=== PATIENT | male | born 1950 | race Two or more races ===

== ENCOUNTER 2021-03-20 21:07 | Inpatient (IN) | payer MEDICARE, MEDICAID, OTHER, SELFPAY ==
--- NOTE | 2021-03-20 | ECG_ITS ---
Test Reason : AMS Blood Pressure : / mmHG Vent. Rate : 100 BPM Atrial Rate : 100 BPM P-R Int : 116 ms QRS Dur : 084 ms QT Int : 332 ms P-R-T Axes : 054 052 038 degrees QTc Int : 428 ms Normal sinus rhythm Normal ECG No previous ECGs available Referred By: Generic ED Physician Electronically Signed By:UMBERTO LOZANO
--- NOTE | ~2021-03-20 | MR_ITS ---
EXAMINATION: MRI BRAIN WITHOUT CONTRAST. CLINICAL INFORMATION: Stroke. COMPARISON: CT brain 03/20/2021. TECHNIQUE: Routine MRI sequences of the brain were obtained except for the FLAIR sequence not obtained due to 7 patient motion and movement. At this point the exam was terminated FINDINGS: There is a restricted diffusion corresponding bright signal in the right posterior occipital lobe which correspond to the CT abnormality suggestive of acute infarct. There is no abnormal flow void signal seen in the mesial temporal lobe to suspect any associated hemorrhage. No additional areas of acute ischemia. No bleed. No edema or midline shift. The lateral ventricles are symmetrical in size and configuration but enlarged. There is mild prominence of cortical sulci consistent with mild cerebral volume loss. Normal flow void signal abnormality seen in major intracranial cerebral vasculature. The para nasal sinuses appear clear. There is T2 signal abnormality in the right mastoid sinus from inflammatory changes. MR/MR head/brain wo con IMPRESSION: Acute infarct changes right mesial and posterior occipital lobe. No evidence of hemorrhage. Age-related cerebral volume loss.
--- NOTE | ~2021-03-20 | CT_ITS ---
EXAMINATION: CT HEAD WITHOUT CONTRAST CLINICAL INFORMATION: Mental status changes COMPARISON: None TECHNIQUE: Contiguous axial imaging was performed from the skull base to vertex without intravenous administration of contrast. This CT examination was performed using dose optimization techniques as appropriate, variously including the following: *Automated exposure control *Adjustment of mA and/or kV according to patient size (this includes techniques or standardized protocols for targeted exams where dose is matched to indication/reason for exam; i.e. extremities or head) *Use of iterative reconstruction technique DLP: 1432 mGy-cm FINDINGS: Limited evaluation in some regions due to motion artifact. There is no evidence of acute intracranial hemorrhage. No abnormal mass effect or midline shift is seen. [place] to white matter differentiation is well preserved. No extra-axial fluid collections are identified. The ventricles are normal in size. Region of infarct in the right occipital lobe is favored to be subacute to chronic in nature. There is moderate periventricular white matter hypoattenuation consistent with chronic small vessel ischemic disease. Moderate volume loss is noted. The osseous structures and soft tissues are normal. The mastoid air cells and visualized portions of the paranasal sinuses are well aerated. CT/CT head/brain wo con IMPRESSION: Limited evaluation in some regions due to motion artifact. Right occipital lobe infarct is favored to be a subacute to chronic, though this would be better assessed with MRI. Chronic small vessel ischemic disease and volume loss.
--- NOTE | ~2021-03-20 | XR_ITS ---
EXAMINATION: XR CHEST CLINICAL INFORMATION: Altered mental status. COMPARISON: None. TECHNIQUE: AP view of the chest was obtained. FINDINGS: Normal appearance of the cardiomediastinal silhouette. An atrial loop recorder is visualized. The lungs are clear. No pleural effusions or pneumothorax. No acute osseous findings. XR/XR chest 1V IMPRESSION: No acute cardiopulmonary abnormalities.
[2021-03-20 21:17] VITALS: BP 121/69; BP 122/70; PULSE 102; PULSE 106; RESP 16; O2SAT 94; O2SAT 98; BMI 17.6
[2021-03-20 21:20] LABS: Glucose, Whole Blood 291 mg/dL (60-115)
--- NOTE | 2021-03-20 23:19 | ECG_ITS ---
Test Reason : AMS Blood Pressure : / mmHG Vent. Rate : 096 BPM Atrial Rate : 096 BPM P-R Int : 114 ms QRS Dur : 082 ms QT Int : 346 ms P-R-T Axes : 070 063 050 degrees QTc Int : 437 ms Normal sinus rhythm Normal ECG When compared with ECG of 20-MAR-2021 21:38, No significant change was found Referred By: Jonathan Nation Electronically Signed By:UMBERTO LOZANO
--- NOTE | 2021-03-20 23:22 | ED_ITS ---
HPI - General Adult General Chief complaint: Fall Stated complaint: rolled out of bed Time Seen by Provider: 03/20/21 23:17 Source: EMS and old records reviewed Mode of arrival: EMS Limitations: physical limitation (Due to Dementia, blind, deaf.) History of Present Illness HPI narrative: 70-year-old male came in from sniff for evaluation after was found on the floor, patient ruled out a bad and found on the floor unwitnessed, patient baseline is awake but disoriented, do not follow commands, dependent in most of the daily needs. Patient is nonverbal. Nursing staff were concerned because he was found on the floor reportedly he was acting differently. Related Data Allergies Allergy/AdvReac Type Severity Reaction Status Date / Time No Known Allergies Allergy Verified 03/20/21 23:19 Review of Systems Review of Systems: Yes Unobtainable due to mental condition [facility] Social History Social History Alcohol intake: never Patient Tobacco Use Status: Never used Tobacco Use of substances other than those prescribed or required for medical reasons: No Advance Directives: No Advance Directives Information Provided: No Physical Exam Vital Signs: Vital Signs: Last Vital Signs Temp 97.8 F 03/20/21 23:49 Pulse 102 H 03/20/21 21:17 Resp 16 03/20/21 21:17 BP 121/69 03/20/21 21:17 Pulse Ox 98 03/20/21 21:17 Body Mass Index 17.6 Vital signs have been reviewed as appeared to be correct. Blood pressure normal. Heart rate elevated. Respiration rate normal. Temperature normal. Oxygen saturation normal. Appearance: No acute distress. Head: Normal external exam. Normocephalic. Atraumatic. No Torres signs noted. No raccoon eyes noted Eyes: PERRLA. EOMI. Conjunctiva and sclera normal. Eyelids normal. ENT: TM's Normal. Pharynx normal. Uvula midline. Moist mucous membranes. No trismus noted. No drooling noted. No muffled voice noted. Neck: Normal inspection. Neck supple. FROM. No adenopathy. Thyroid Normal. No meningeal signs. No neck mass noted. CVS: Normal heart rate and rhythm. Heart sound normal. No murmurs noted. Pulses normal throughout. Respiratory: No respiratory distress. Painless inspiration. Breath sounds n ormal. No wheezes/rales/rhonchi noted. Chest nontender. No accessory muscle usage noted or decreased air movement noted. Abdomen: Soft and nontender. Bowel sounds normal in all 4 quadrants. No diste ntion noted. No organomegaly noted. No visible injury noted. Back: No CVA tenderness. Full range of motion noted. Skin: Skin warm and dry. Normal skin color. Normal skin turgor. No rashes/lesions/lacerations noted. Extremities: No lower extremity edema. Extremities exhibit normal range of m otion. Extremities nontender. Neuro: Appear to be at his normal baseline which is awake but disoriented, disregard examiner. NIH Stroke Scale Internal: Other (Unable to assess due to patient baseline condition of dementia.) Course Course Course Narrative: Assessment and plan. 70-year-old male baseline is bed ridden, dementia, blind, deaf, non historian. Found on the floor sent by senior care for further evaluation. CT head is consistent with subacute occipital infarction and recommending MRI of the head to assess for that. Will admit. Medical Decision Making Lab Data Lab results reviewed: Yes I reviewed the patient's lab results. Result diagrams: 03/20/21 23:55 03/20/21 23:55 Labs: Lab Results 03/20/21 03/20/21 03/20/21 Range/Units 21:16 23:55 23:55 WBC 9.9 (4.8-10.8) X10*3/uL RBC 4.73 (4.60-5.80) X10*6/uL Hgb 14.0 (14.0-18.0) g/dl Hct 41.4 L (42-52) % MCV 87.5 (80-98) fL MCH 29.6 (27.0-33.0) pg MCHC 33.8 (31.0-36.0) g/dl RDW 14.4 (11.0-16.0) % Plt Count 292 (160-400) X10*3/uL MPV 9.7 (9.4-12.4) fL Immature Gran % (Auto) 0.4 (0.0-0.4) % Neut % (Auto) 67.7 (45-73) % Lymph % (Auto) 25.6 (20-40) % [place] % (Auto) 5.6 (2-11) % Eos % (Auto) 0.2 (0-4) % Baso % (Auto) 0.5 (0-2) % Lymph # (Auto) 2.5 (1.2-4.9) X10*3/uL [place] # (Auto) 0.6 (0.1-1.2) X10*3/uL Eos # (Auto) 0.0 (0.0-0.4) X10*3/uL Baso # (Auto) 0.1 (0.0-0.2) X10*3/uL Abs Immat Gran (auto) 0.04 H (0.00-0.03) X10*3/uL Absolute Neuts (auto) 6.7 (2.0-8.3) X10*3/uL Absolute Nucleated RBC 0.000 (0.0-0.012) X10*3/uL Nucleated RBC % (auto) 0.0 (0.0-0.2) /100WBC Sodium 140 (135-145) mmol/L Potassium 4.9 (3.3-5.1) mmol/L Chloride 104 (96-108) mmol/L Carbon Dioxide 22 (22-29) mmol/L Anion Gap 19 (12-20) BUN 25 H (9-16) mg/dL Creatinine 1.38 (0.5-1.4) mg/dL Estim Creat Clear Calc 38.6 Estimated GFR 51 POC Glucose 291 H (60-115) mg/dL Random Glucose 286 H (60-115) mg/dL Calcium 8.9 (8.4-10.2) mg/dL Total Bilirubin 0.6 (0.0-1.0) mg/dL Direct Bilirubin 0.2 (0.0-0.5) mg/dL AST 42 H (5-37) U/L ALT 27 (0-40) U/L Alkaline Phosphatase 149 H (39-117) U/L Troponin I High Sens (<3.5-35.0) ng/L B-Natriuretic Peptide (<100) pg/mL Total Protein 6.7 (6.5-8.0) g/dL Albumin 3.3 L (3.5-5.0) g/dL Lipase 31 (8-78) U/L Urine Color Urine Appearance Urine pH (5.0-8.0) Ur Specific [place] (1.005-1.025) Urine Protein (NEG-TRACE) MG/DL Urine Glucose (UA) (NEG) MG/DL Urine Ketones (NEG) MG/DL Urine Blood (NEG) Urine Nitrite (NEG) Ur Leukocyte Esterase (NEG) Urine RBC (0) /HPF Urine WBC (0-4) /HPF Ur Squamous Epith Cells /LPF Urine Bacteria /LPF Hyaline Casts /LPF Granular Casts /LPF Urine Mucus /LPF COVID-19 (PERRY) (Negative) COVID-19 Clin Com 03/20/21 03/20/21 03/21/21 Range/Units 23:55 23:55 00:26 WBC (4.8-10.8) X10*3/uL RBC (4.60-5.80) X10*6/uL Hgb (14.0-18.0) g/dl Hct (42-52) % MCV (80-98) fL MCH (27.0-33.0) pg MCHC (31.0-36.0) g/dl RDW (11.0-16.0) % Plt Count (160-400) X10*3/uL MPV (9.4-12.4) fL Immature Gran % (Auto) (0.0-0.4) % Neut % (Auto) (45-73) % Lymph % (Auto) (20-40) % [place] % (Auto) (2-11) % Eos % (Auto) (0-4) % Baso % (Auto) (0-2) % Lymph # (Auto) (1.2-4.9) X10*3/uL [place] # (Auto) (0.1-1.2) X10*3/uL Eos # (Auto) (0.0-0.4) X10*3/uL Baso # (Auto) (0.0-0.2) X10*3/uL Abs Immat Gran (auto) (0.00-0.03) X10*3/uL Absolute Neuts (auto) (2.0-8.3) X10*3/uL Absolute Nucleated RBC (0.0-0.012) X10*3/uL Nucleated RBC % (auto) (0.0-0.2) /100WBC Sodium (135-145) mmol/L Potassium (3.3-5.1) mmol/L Chloride (96-108) mmol/L Carbon Dioxide (22-29) mmol/L Anion Gap (12-20) BUN (9-16) mg/dL Creatinine (0.5-1.4) mg/dL Estim Creat Clear Calc Estimated GFR POC Glucose (60-115) mg/dL Random Glucose (60-115) mg/dL Calcium (8.4-10.2) mg/dL Total Bilirubin (0.0-1.0) mg/dL Direct Bilirubin (0.0-0.5) mg/dL AST (5-37) U/L ALT (0-40) U/L Alkaline Phosphatase (39-117) U/L Troponin I High Sens 9.8 (<3.5-35.0) ng/L B-Natriuretic Peptide 21 (<100) pg/mL Total Protein (6.5-8.0) g/dL Albumin (3.5-5.0) g/dL Lipase (8-78) U/L Urine Color DK YELLOW Urine Appearance CLEAR Urine pH 5.0 (5.0-8.0) Ur Specific [place] >= 1.030 H (1.005-1.025) Urine Protein TRACE (NEG-TRACE) MG/DL Urine Glucose (UA) 100 H (NEG) MG/DL Urine Ketones 5 (NEG) MG/DL Urine Blood TRACE (NEG) Urine Nitrite NEG (NEG) Ur Leukocyte Esterase NEG (NEG) Urine RBC 1-4 (0) /HPF Urine WBC 1-4 (0-4) /HPF Ur Squamous Epith Cells TRACE /LPF Urine Bacteria TRACE /LPF Hyaline Casts 1-4 /LPF Granular Casts 1-4 /LPF Urine Mucus 1+ /LPF COVID-19 (PERRY) Negative (Negative) COVID-19 Clin Com See Note Imaging Data CT scan - head: Radiologist's impression: Limited evaluation in some regions due to motion artifact. Right occipital lobe infarct is favored to be a subacute to chronic, though this would be better assessed with MRI. Chronic small vessel ischemic disease and volume loss. Chest x-ray: Radiologist's impression: No acute cardiopulmonary abnormalities. Discharge Plan Discharge Clinical Impression: Fall, Altered mental status Patient Disposition: Admitted As Inpatient Instructions: Fall Prevention (ED) Referrals: Liya Eugene MD [Primary Care Provider] - 2 days
--- NOTE | 2021-03-20 23:31 | PC.NURSE ---
XRay at bedside. Pt off to CT on hospital bed at this time. Plan for labs, EKG and Covid swab upon return.
[2021-03-20 23:49] VITALS: TEMP 36.6
[2021-03-21] VITALS (9 sets, daily range): BP systolic 112–146; BP diastolic 57–95; PULSE 78–116; RESP 15–20; TEMP 36.1–36.9; O2SAT 78–98
--- NOTE | 2021-03-21 00:06 | PC.NURSE ---
Pt returns from C on hospital bed without incident. IV established, labs, Covid and EKG obtained. Pt resting in bed at this time in NAD.
[2021-03-21 00:09] LABS: MANUAL DIFF FLAG NO
[2021-03-21 00:12] LABS: Basophils Absolute Auto 0.1 X10*3/uL (0.0-0.2); Basophils Percent Auto 0.5 % (0-2); Eosinophils Percent Auto 0.2 % (0-4); Hematocrit 41.4 % (42-52); Imm Gran Abs Auto 0.04 X10*3/uL (0.00-0.03); Imm Gran Pct Auto 0.4 % (0.0-0.4); Lymphocytes Absolute Auto 2.5 X10*3/uL (1.2-4.9); Lymphocytes Percent Auto 25.6 % (20-40); Mean Corpuscular HGB Conc 33.8 g/dl (31.0-36.0); Mean Corpuscular Hemoglobin 29.6 pg (27.0-33.0); Mean Corpuscular Volume 87.5 fL (80-98); Mean Platelet Volume 9.7 fL (9.4-12.4); Monocytes Absolute Auto 0.6 X10*3/uL (0.1-1.2); Monocytes Percent Auto 5.6 % (2-11); Neutrophils Absolute Auto 6.7 X10*3/uL (2.0-8.3); Neutrophils Percent Auto 67.7 % (45-73); Platelet Count 292 X10*3/uL (160-400); Red Blood Count 4.73 X10*6/uL (4.60-5.80); Red Cell Distribution Width 14.4 % (11.0-16.0); White Blood Count 9.9 X10*3/uL (4.8-10.8)
[2021-03-21 00:22] LABS: COVID-19 Test Negative (Negative)
[2021-03-21] MEDS: Lidocaine HCl 2 % Urojet 10 ML JEL.PF.APP TOPICAL (00:25)
--- NOTE | 2021-03-21 00:26 | PC.NURSE ---
UA obtained via straight cath. Pt tolerating the procedure fairly despite urojet.
[2021-03-21 00:30] LABS: Alanine Aminotransferase 27 U/L (0-40); Albumin Level 3.3 g/dL (3.5-5.0); Alkaline Phosphatase 149 U/L (39-117); Anion Gap 19 (12-20); Aspartate Amino Transferase 42 U/L (5-37); B Type Natriuretic Peptide 21 pg/mL (<100); Bilirubin Direct 0.2 mg/dL (0.0-0.5); Bilirubin Total 0.6 mg/dL (0.0-1.0); Blood Urea Nitrogen 25 mg/dL (9-16); Calcium 8.9 mg/dL (8.4-10.2); Carbon Dioxide 22 mmol/L (22-29); Chloride 104 mmol/L (96-108); Creatinine Clr Calc Pharmacy 38.6; Estimated Glomerular Filt Rate 51; Glucose Random 286 mg/dL (60-115); Lipase 31 U/L (8-78); Potassium 4.9 mmol/L (3.3-5.1); Sodium 140 mmol/L (135-145); Total Protein 6.7 g/dL (6.5-8.0); Troponin-I High Sensitivity 9.8 ng/L (<3.5-35.0)
[2021-03-21 00:43] LABS: Appearance Urine CLEAR; Color Urine DK YELLOW; Glucose Urine UA 100 MG/DL (NEG); Leukocyte Esterase Urine NEG (NEG); Nitrite Urine NEG (NEG); Specific Gravity - Urine >= 1.030 (1.005-1.025); UACC Culture Trigger NO; Urine Blood TRACE (NEG); Urine Ketones 5 MG/DL (NEG); Urine Protein TRACE MG/DL (NEG-TRACE)
[2021-03-21 00:59] LABS: Bacteria Urine TRACE /LPF; Mucus Urine 1+ /LPF; Squamous Epithelial Cell Urine TRACE /LPF; UACC CULT NO
[2021-03-21 01:36] LABS: Glucose, Whole Blood 289 mg/dL (60-115)
--- NOTE | 2021-03-21 02:57 | PM.IMHP ---
History of Present Illness Date of Service: 03/21/21 Chief Complaint: fall 70-year-old male with a past medical history of diabetes, hypothyroidism, hyperlipidemia and gout who is [facility] to the hospital from [facility] after being found on the floor.EMR as well as ED physician as patient is completely delirious and unable to give much history. According to nursing staff patient is alert at baseline but disoriented, confused and does not follow command at baseline. According to the ED physician patient was found on the floor, apparently he rolled out of bed but this was all on witness. They also reported the patient has been slightly different for few days. Arrival to the ED patient hemodynamically stable with no significantly abnormal vitals Labs are significant for WBC count of 9.9, hemoglobin of 14, BUN of 25, creatinine of 1.38, glucose of 289, labs otherwise unremarkable. UA negative for infection. COVID-[address] of the head: Although limited evaluation some region, due to motion artifact right occipital lobe infarct is favored to be subacute to chronic. MRI is recommended Patient will be admitted for further management Unable to obtain past medical surgical or family history as patient is delirious and unable to give history Review of Systems Review of Systems: Yes Unobtainable due to mental status [facility] Medical History (Updated 03/21/21 @ 06:26 by Mil Guillen MD) Diabetes Gout HLD (hyperlipidemia) Pertinent family history: Unable to obtain Social History Alcohol intake: never Patient Tobacco Use Status: Never used Tobacco Use of substances other than those prescribed or required for medical reasons: No Advance Directives: No Advance Directives Information Provided: No Meds Allergies Allergy/AdvReac Type Severity Reaction Status Date / Time No Known Allergies Allergy Verified 03/20/21 23:19 Active Medications: Current Medications Allopurinol (Allopurinol 300 Mg Tablet) 300 mg PO DAILY ANGÉLICA Aspirin (Aspirin Enteric Coated 81 Mg Tablet.Dr) 81 mg PO DAILY ANGÉLICA Atorvastatin Calcium (Atorvastatin Calcium 80 Mg Tablet) 80 mg PO DAILY ANGÉLICA Atorvastatin Calcium (Atorvastatin Calcium 80 Mg Tablet) 80 mg PO DAILY ANGÉLICA Bisacodyl (Bisacodyl 10 Mg Supp.Rect) 10 mg IA DAILY PRN PRN Reason: Constipation Dextrose (Dextrose 50 % 25 Gm/50 Ml Vial) 25 gm IVPUSH Q15M PRN; Protocol PRN Reason: per Hypoglycemia Standing Ord. Docusate Sodium (Docusate Sodium 100 Mg Capsule) 100 mg PO BID PRN PRN Reason: Constipation Enalapril Maleate (Enalapril Maleate 10 Mg Tablet) 30 mg PO DAILY [facility]; Protocol Glipizide (Glipizide 10 Mg Tablet) 10 mg PO DAILY [facility] Glucose (Glucose Gel 15 Gm Gel..Gram.) 15 gm PO Q15M PRN; Protocol PRN Reason: per Hypoglycemia Standing Ord. Guaifenesin/Dextromethorphan (Guaifenesin Dm 100/10/5 Ml 5 Ml Syrup) 10 ml PO Q4H PRN PRN Reason: Cough Insulin Human Lispro (Insulin Lispro 100 Unit/Ml 3 Ml Vial) 0 unit SUBCUT QIDACHS [facility]; Protocol Levothyroxine Sodium (Levothyroxine Sodium 50 Mcg Tablet) 50 mcg PO DAILY [facility] Lidocaine (Lidocaine 4 % Patch Adh..Patch) 1 patch TRANSDERMA DAILY PRN; Protocol PRN Reason: Pain Magnesium Citrate (Magnesium Citrate 300 Ml Solution) 150 ml PO BID PRN PRN Reason: Constipation Melatonin (Melatonin 3 Mg Tablet) 3 mg PO BEDTIME [facility] Non-Formulary Medication (Aluminum-Magnesium Hydroxide) 30 ml PO Q6-8H PRN PRN Reason: Dyspepsia Non-Formulary Medication (Aspirin) 81 mg PO DAILY [facility] Home Medications Medication Instructions Recorded Confirmed Last Taken Type acetaminophen 650 mg tablet 650 mg PO Q4H PRN 03/21/21 03/21/21 Unknown History allopurinol 300 mg tablet 300 mg PO DAILY 03/21/21 03/21/21 Unknown History aluminum-magnesium hydroxide 225 30 ml PO Q6-8H PRN 03/21/21 03/21/21 Unknown History mg-200 mg/5 mL oral suspension aspirin 81 mg tablet 81 mg PO DAILY 03/21/21 03/21/21 Unknown History atorvastatin 80 mg tablet 80 mg PO DAILY 03/21/21 03/21/21 Unknown History bisacodyl 10 mg rectal suppository 10 mg IA DAILY PRN 03/21/21 03/21/21 Unknown History dextromethorphan-guaifenesin 10 10 ml PO Q4H PRN 03/21/21 03/21/21 Unknown History mg-100 mg/5 mL oral syrup docusate sodium 100 mg tablet 100 mg PO BID PRN 03/21/21 03/21/21 Unknown History enalapril maleate 10 mg tablet 30 mg PO DAILY 03/21/21 03/21/21 Unknown History glipizide 10 mg tablet 10 mg PO DAILY 03/21/21 03/21/21 Unknown History levothyroxine 50 mcg tablet 50 mcg PO DAILY 03/21/21 03/21/21 Unknown History lidocaine 4 % topical patch 1 patch TOPICAL DAILY PRN 03/21/21 03/21/21 Unknown History (Lidocaine Pain Relief) magnesium citrate (Citrate of 150 ml PO BID PRN 03/21/21 03/21/21 Unknown History Magnesia) melatonin 3 mg tablet 3 mg PO BEDTIME 03/21/21 03/21/21 Unknown History metformin 1,000 mg tablet 1,000 mg PO BID 03/21/21 03/21/21 Unknown History sitagliptin 100 mg tablet 100 mg PO DAILY 03/21/21 03/21/21 Unknown History Physical Exam Vital Signs and Narrative: Vital Signs: Last Vital Signs Temp 97.8 F 03/20/21 23:49 Pulse 84 03/21/21 02:27 Resp 18 03/21/21 02:27 BP 133/95 H 03/21/21 02:27 Pulse Ox 97 03/21/21 02:27 Body Mass Index 17.6 Const: Other: Patient has cracked lips, very dry mucosal membranes including tongue, and appears significantly dehydrated General: cooperative and no acute distress Eyes: General: appearance normal, both eyes and all related structures Resp: Effort & Inspection: normal respiratory effort Auscultation: clear to auscultation bilaterally Cardio: Rate: regular rate Rhythm: regular rhythm GI: Palpation (GI): Soft to palpation Auscultation: normal bowel sounds Skin: Other: Appears dehydrated General skin exam: no rashes or lesions noted Neuro: Other: Patient is completely confused, unable to follow commands, on therefore unable to assess neurological status or deficits Extrem: General: Yes normal to inspection and Yes no pedal edema Results Labs CBC and Chem 7: 03/20/21 23:55 03/20/21 23:55 Labs: Laboratory Results - last 24 hr 03/20/21 03/20/21 03/20/21 21:16 23:49 23:55 MCV 87.5 MCH 29.6 MCHC 33.8 RDW 14.4 Plt Count 292 MPV 9.7 Immature Gran % (Auto) 0.4 Neut % (Auto) 67.7 Lymph % (Auto) 25.6 [place] % (Auto) 5.6 Eos % (Auto) 0.2 Baso % (Auto) 0.5 Lymph # (Auto) 2.5 [place] # (Auto) 0.6 Eos # (Auto) 0.0 Baso # (Auto) 0.1 Abs Immat Gran (auto) 0.04 H Absolute Neuts (auto) 6.7 Absolute Nucleated RBC 0.000 Nucleated RBC % (auto) 0.0 Anion Gap Estim Creat Clear Calc Estimated GFR POC Glucose 291 H 289 H Random Glucose Calcium Total Bilirubin Direct Bilirubin AST ALT Alkaline Phosphatase Troponin I High Sens B-Natriuretic Peptide Total Protein Albumin Lipase Urine Color Urine Appearance Urine pH Ur Specific [place] Urine Protein Urine Glucose (UA) Urine Ketones Urine Blood Urine Nitrite Ur Leukocyte Esterase Urine RBC Urine WBC Ur Squamous Epith Cells Urine Bacteria Hyaline Casts Granular Casts Urine Mucus COVID-19 (PERRY) COVID-19 Clin Com 03/20/21 03/20/21 03/20/21 23:55 23:55 23:55 MCV MCH MCHC RDW Plt Count MPV Immature Gran % (Auto) Neut % (Auto) Lymph % (Auto) [place] % (Auto) Eos % (Auto) Baso % (Auto) Lymph # (Auto) [place] # (Auto) Eos # (Auto) Baso # (Auto) Abs Immat Gran (auto) Absolute Neuts (auto) Absolute Nucleated RBC Nucleated RBC % (auto) Anion Gap 19 Estim Creat Clear Calc 38.6 Estimated GFR 51 POC Glucose Random Glucose 286 H Calcium 8.9 Total Bilirubin 0.6 Direct Bilirubin 0.2 AST 42 H ALT 27 Alkaline Phosphatase 149 H Troponin I High Sens 9.8 B-Natriuretic Peptide 21 Total Protein 6.7 Albumin 3.3 L Lipase 31 Urine Color Urine Appearance Urine pH Ur Specific [place] Urine Protein Urine Glucose (UA) Urine Ketones Urine Blood Urine Nitrite Ur Leukocyte Esterase Urine RBC Urine WBC Ur Squamous Epith Cells Urine Bacteria Hyaline Casts Granular Casts Urine Mucus COVID-19 (PERRY) Negative COVID-19 Clin Com See Note 03/21/21 00:26 MCV MCH MCHC RDW Plt Count MPV Immature Gran % (Auto) Neut % (Auto) Lymph % (Auto) [place] % (Auto) Eos % (Auto) Baso % (Auto) Lymph # (Auto) [place] # (Auto) Eos # (Auto) Baso # (Auto) Abs Immat Gran (auto) Absolute Neuts (auto) Absolute Nucleated RBC Nucleated RBC % (auto) Anion Gap Estim Creat Clear Calc Estimated GFR POC Glucose Random Glucose Calcium Total Bilirubin Direct Bilirubin AST ALT Alkaline Phosphatase Troponin I High Sens B-Natriuretic Peptide Total Protein Albumin Lipase Urine Color DK YELLOW Urine Appearance CLEAR Urine pH 5.0 Ur Specific [place] >= 1.030 H Urine Protein TRACE Urine Glucose (UA) 100 H Urine Ketones 5 Urine Blood TRACE Urine Nitrite NEG Ur Leukocyte Esterase NEG Urine RBC 1-4 Urine WBC 1-4 Ur Squamous Epith Cells TRACE Urine Bacteria TRACE Hyaline Casts 1-4 Granular Casts 1-4 Urine Mucus 1+ COVID-19 (PERRY) COVID-19 Clin Com ECG Interpretation: Normal sinus rhythm Imaging Radiologist's Impressions: Impressions Chest X-Ray 03/20/21 23:19 IMPRESSION: No acute cardiopulmonary abnormalities. Head CT 03/20/21 23:20 IMPRESSION: Limited evaluation in some regions due to motion artifact. Right occipital lobe infarct is favored to be a subacute to chronic, though this would be better assessed with MRI. Chronic small vessel ischemic disease and volume loss. Assessment and Plan (1) CVA (cerebral vascular accident): Status: Acute (2) Fall: Qualifiers: Encounter type: initial encounter Qualified Code(s): W19.XXXA - Unspecified fall, initial encounter Status: Acute (3) RAMÍREZ (acute kidney injury): Status: Acute 70-[facility]-old [facility] resident who presents to the hospital after an unwitnessed fall found to have CVA # CVA - as seen on CT of the head, subacute versus chronic - unable to assess for any neurological deficits as patient is confused and not following commands - will admit for MRI - neurology consulted - aspirin and high-dose statin # fall - most likely secondary to CVA - this was unwitnessed - no evidence of infection, no abnormal EKG findings - PT OT consult # diabetes - hold oral antihyperglycemics - will place him on low-dose sliding scale insulin - diabetic diet # RAMÍREZ - patient appears very dehydrated - will start on IV fluids - follow BMP # hypertension - elevated - continue home enalapril # gout - continue allopurinol DVT prophylaxis: Heparin subQ Quality Stroke Does the patient have a stroke diagnosis?: No VTE Prior VTE?: No VTE Risk Level:: Medical - moderate - high VTE Device Contraindication: Treatment Not Indicated VTE Drug Contraindication: N/A - Med Ordered
--- NOTE | 2021-03-21 03:27 | PC.NURSE ---
Pt alert and confused, oriented to self only, baseline demntia. Pt does not follow commands well, sun downing noted. Pt turned and positioned, redness to buttock noted. IV intact, vitals stable. Pt remains bed rest.
[2021-03-21 06:33] LABS: Glucose, Whole Blood 233 mg/dL (60-115)
[2021-03-21] MEDS: Lactated Ringers 1,000 ML 100 ML IVCONT (06:40)
--- NOTE | 2021-03-21 06:45 | PC.NURSE ---
Pt's son, William Chavez, is HCP
--- NOTE | 2021-03-21 06:45 | PC.NURSE ---
Per MD orders do not give D5 LR fluids at 80ml, only give LR at 100ml/hr at this time.
--- NOTE | 2021-03-21 06:46 | PC.NURSE ---
This RN contacted [facility] at [place] and spoke to Yany, Nurse who reports pt was admitted to [facility] s/p admission for both R sided stroke with L side deficits as well as a PNA. Per Yany, pt's baseline is demented and restless.
[2021-03-21] MEDS: Heparin Sodium,Porcine 5,000 UNIT/ML VIAL 5000 UNIT SUBCUT ×2 (07:41→17:21)
--- NOTE | 2021-03-21 08:22 | PM.EVENT ---
Event Note Date of Service: 03/21/21 Event Note: I saw and examined patient who is very confused and not following commands, exam limitted but could not appreciate focal deficit. MRI of head is pending. Neuro eval pending. ASA/statin, PT/OT, and speech eval.
[2021-03-21] MEDS: 0.9 % Sodium Chloride 1,000 ML 100 ML IVCONT ×2 (08:34→18:26)
--- NOTE | 2021-03-21 09:15 | PC.NURSE ---
spoke with patient son, William, and completed MRI screening form. 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 son reports patient mental status is at baseline, he had a sroke 3 months ago.
[2021-03-21 09:17] LABS: MANUAL DIFF FLAG NO
[2021-03-21 09:21] LABS: Basophils Absolute Auto 0.1 X10*3/uL (0.0-0.2); Basophils Percent Auto 0.8 % (0-2); Eosinophils Absolute Auto 0.1 X10*3/uL (0.0-0.4); Eosinophils Percent Auto 1.4 % (0-4); Hematocrit 40.6 % (42-52); Hemoglobin 13.5 g/dl (14.0-18.0); Imm Gran Abs Auto 0.02 X10*3/uL (0.00-0.03); Imm Gran Pct Auto 0.2 % (0.0-0.4); Lymphocytes Absolute Auto 2.2 X10*3/uL (1.2-4.9); Lymphocytes Percent Auto 22.4 % (20-40); Mean Corpuscular HGB Conc 33.3 g/dl (31.0-36.0); Mean Corpuscular Hemoglobin 29.1 pg (27.0-33.0); Mean Corpuscular Volume 87.5 fL (80-98); Mean Platelet Volume 9.9 fL (9.4-12.4); Monocytes Absolute Auto 0.6 X10*3/uL (0.1-1.2); Monocytes Percent Auto 6.1 % (2-11); Neutrophils Absolute Auto 6.8 X10*3/uL (2.0-8.3); Neutrophils Percent Auto 69.1 % (45-73); Platelet Count 240 X10*3/uL (160-400); Red Blood Count 4.64 X10*6/uL (4.60-5.80); Red Cell Distribution Width 14.3 % (11.0-16.0); White Blood Count 9.8 X10*3/uL (4.8-10.8)
[2021-03-21 09:38] LABS: Anion Gap 16 (12-20); Blood Urea Nitrogen 23 mg/dL (9-16); Calcium 8.9 mg/dL (8.4-10.2); Carbon Dioxide 21 mmol/L (22-29); Chloride 109 mmol/L (96-108); Creatinine Clr Calc Pharmacy 45.9; Estimated Glomerular Filt Rate > 60; Glucose Random 230 mg/dL (60-115); Potassium 3.7 mmol/L (3.3-5.1); Sodium 142 mmol/L (135-145)
--- NOTE | 2021-03-21 09:59 | MHC.STROKE ---
03/20/212106 EMS PRE-NOTIFIED FOR FALL, PATIENT BEDRIDDEN, DEMENTIA, UNKNOWN ONSET OF SYMPTOMS, COULD HAVE BEEN 03/18/21 BECAUSE SNF REPORTED HE WAS NOT HIMSELF FOR A FEW DAYS. NIHSS ATTEMPTED BUT UNABLE TO PERFORM DUE TO DEMENTIA, HIS MENTAL STATUS, BLIND, DEAF, ETC. CT HEAD ? OF SUB-ACUTE RIGHT OCCIPITAL STROKE, MRI TO CONFIRM IF PATIENT IS ABLE TO TOLERATE. RECOMMEND ASPIRIN LA DUE TO FAILING SWALLOW SCREEN. SPEECH CONSULTED. I WILL FOLLOW. ALL STROKE MEASURES ARE MET.
--- NOTE | 2021-03-21 12:34 | MHC.CM.PN ---
Attempted to meet with patient in regards to discharge planning.Patient currently sleeping. Spoke with patient's son, William, via telephone at [phone]. Patient was living at home until about 3 months ago when patient had his first CVA. Patient is deaf. He was able to read lips until he lost vision in his left eye after his CVA. He is currently right eye dominant. William is requesting an interpreter deaf for his dad. Dr Birmingham and Jarad FELIX aware. Patient was at [facility] until 3 days ago. He was transferred to [facility] and came to [facility] after a fall. Copy of HCP and Covid vaccine information requested from [facility] Anticipate patient will return to [facility] via BLS when medically stable. IMM explained and sent via certified mail at William's request. Continue to monitor for d/c needs.
[2021-03-21 12:53] LABS: Glucose, Whole Blood 235 mg/dL (60-115)
[2021-03-21] MEDS: Insulin Lispro 100 UNIT/ML 3 ML VIAL SUBCUT (17:23)
[2021-03-21 17:26] LABS: Glucose, Whole Blood 205 mg/dL (60-115)
--- NOTE | 2021-03-21 17:38 | PC.NURSE ---
Patient arrived on unit. Unable to assess as patient is reportly deaf, blind in left eye and is unable to communicate effectively at baseline. Opens eyes spontaneously. PERRLA. Symmetrical smile. Positive cough and gag. Poor oral cavitiy health. Mouth swabbed. Unable to follow commands, NPO. Awaiting speech consult for swallow evaluation. Unable to assess bilateral protective service specialist strength, unable to follow commands. Moving all extremities. VSS. Placed on 2L NC for lower O2 sat. Recheck, 98% on 2L. LS clear. BSx4. Pressure injury to coccyx noted on admission measuring 2.5 cm W x 2 cm L, question stage III per this RN. Photos taken and placed in chart. [facility] Connect sent to [facility] wound RN for consult. Barrier cream and large pink foam applied. Repo tate q2h. Looking for pump for air loss bed capability. Patient incontinent of urine. Male external catheter applied. Telesitter camera bedside for patient safety. High fall risk precautions applied. Room located near nurses station. Patient's son aware of transfer to [facility]. Will continue to monitor.
[2021-03-21 21:13] LABS: Glucose, Whole Blood 101 mg/dL (60-115)
[2021-03-21 21:14] LABS: Glucose, Whole Blood 110 mg/dL (60-115)
[2021-03-21] MEDS: Haloperidol Lactate 5 MG/ML VIAL 2.5 MG IVPUSH (21:43)
[2021-03-22] MEDS: diphenhydrAMINE HCL 50 MG/ML VIAL 25 MG IVPUSH (00:29)
[2021-03-22 03:28] VITALS: BP 131/80; PULSE 115; RESP 16; TEMP 37.3; O2SAT 96
[2021-03-22] MEDS: 0.9 % Sodium Chloride 1,000 ML 100 ML IVCONT (05:16)
[2021-03-22] MEDS: Heparin Sodium,Porcine 5,000 UNIT/ML VIAL 5000 UNIT SUBCUT ×2 (06:31→17:54)
[2021-03-22 07:06] VITALS: BP 141/65; PULSE 70; RESP 20; TEMP 36.6; O2SAT 96
[2021-03-22 07:24] LABS: Glucose, Whole Blood 130 mg/dL (60-115)
[2021-03-22 07:46] LABS: Cholesterol 115 mg/dL; HDL Cholesterol 36 mg/dL; LDL Cholesterol Calculated 62 mg/dl; Triglycerides 85 mg/dL
[2021-03-22 11:19] VITALS: BP 150/74; PULSE 98; RESP 22; TEMP 35.7; O2SAT 93
[2021-03-22] MEDS: hydrOXYzine HCL 50 MG/ML VIAL 25 MG IM ×2 (11:22→17:53)
[2021-03-22 11:31] LABS: Glucose, Whole Blood 153 mg/dL (60-115)
[2021-03-22] MEDS: Insulin Lispro 100 UNIT/ML 3 ML VIAL SUBCUT ×3 (11:47→20:40)
--- NOTE | 2021-03-22 14:15 | PM.NEUROCN ---
History of Present Illness Data of Consult Service Date: 03/21/21 Primary Care Provider: Liya Eugene MD [facility] Reason for consult: Altered mental status This is a 70-year-old man with a history of dementia, hypertension, diabetes hyperlipidemia and hypothyroidism, who at best is quite demented does follow commands at times. He is unable to provide any information. He was found altered and had fallen down. CT and MRI confirmed an acute right medial inferior occipital and medial temporal stroke. TPA was not administered because of unknown onset Review of Systems Review of Systems: Yes Unobtainable due to mental condition and Unobtainable due to mental status [facility] Past Medical History Medical History (Updated 03/21/21 @ 06:26 by Mil Guillen MD) Diabetes Gout HLD (hyperlipidemia) Family History Pertinent family history: Unable to obtain Social History Social History Household Members: Other Housing: Senior [facility] Unable to assess alcohol history related to: Unable to respond Alcohol intake: never Patient Tobacco Use Status: Never used Tobacco service: No Current occupational status: retired [employer] Allergies Allergy/AdvReac Type Severity Reaction Status Date / Time No Known Allergies Allergy Verified 03/20/21 23:19 Active Medications: Current Medications Al Hydroxide/Mg Hydroxide (Magnesium Hydrox/Alum Hydrox 30 Ml Oral.Susp) 30 ml PO Q6H PRN PRN Reason: Dyspepsia Allopurinol (Allopurinol 300 Mg Tablet) 300 mg PO DAILY [facility] Last Admin: 03/22/21 08:09 Dose: Not Given Documented by: Aspirin (Aspirin Enteric Coated 81 Mg Tablet.) 81 mg PO DAILY [facility] Last Admin: 03/22/21 08:07 Dose: Not Given Documented by: Atorvastatin Calcium (Atorvastatin Calcium 80 Mg Tablet) 80 mg PO DAILY [facility] Last Admin: 03/22/21 08:08 Dose: Not Given Documented by: Bisacodyl (Bisacodyl 10 Mg Supp.Rect) 10 mg SC DAILY PRN PRN Reason: Constipation Dextrose (Dextrose 50 % 25 Gm/50 Ml Vial) 25 gm IVPUSH Q15M PRN; Protocol PRN Reason: per Hypoglycemia Standing Ord. Docusate Sodium (Docusate Sodium 100 Mg Capsule) 100 mg PO BID PRN PRN Reason: Constipation Enalapril Maleate (Enalapril Maleate 10 Mg Tablet) 30 mg PO DAILY [facility]; Protocol Last Admin: 03/22/21 08:09 Dose: Not Given Documented by: Glucose (Glucose Gel 15 Gm Gel..Gram.) 15 gm PO Q15M PRN; Protocol PRN Reason: per Hypoglycemia Standing Ord. Guaifenesin/Dextromethorphan (Guaifenesin Dm 100/10/5 Ml 5 Ml Syrup) 10 ml PO Q4H PRN PRN Reason: Cough Heparin Sodium (Porcine) (Heparin Sodium,Porcine 5,000 Unit/Ml Vial) 5,000 unit SUBCUT Q12H [facility] Last Admin: 03/22/21 06:31 Dose: 5,000 unit Documented by: Hydroxyzine HCl (Hydroxyzine Hcl 50 Mg/Ml Vial) 25 mg IM Q6H PRN PRN Reason: agitation/restlessness Last Admin: 03/22/21 11:22 Dose: 25 mg Documented by: Sodium Chloride (Ns) 1,000 mls @ 100 mls/hr IVCONT .Q10H [facility] Last Admin: 03/22/21 05:16 Dose: 100 mls/hr Documented by: Insulin Human Lispro (Insulin Lispro 100 Unit/Ml 3 Ml Vial) 0 unit SUBCUT QIDACHS [facility]; Protocol Last Admin: 03/22/21 11:47 Dose: 2 unit Documented by: Levothyroxine Sodium (Levothyroxine Sodium 25 Mcg Tablet) 50 mcg PO DAILY@0630 [facility] Last Admin: 03/22/21 06:23 Dose: Not Given Documented by: Lidocaine (Lidocaine 4 % Patch Adh..Patch) 1 patch TRANSDERMA DAILY PRN; Protocol PRN Reason: Pain Magnesium Citrate (Magnesium Citrate 300 Ml Solution) 150 ml PO BID PRN PRN Reason: Constipation Melatonin (Melatonin 3 Mg Tablet) 3 mg PO BEDTIME [facility] Last Admin: 03/21/21 20:06 Dose: Not Given Documented by: Home Medications Medication Instructions Recorded Confirmed Last Taken Type acetaminophen 650 mg tablet 650 mg PO Q4H PRN 03/21/21 03/21/21 Unknown History allopurinol 300 mg tablet 300 mg PO DAILY 03/21/21 03/21/21 Unknown History aluminum-magnesium hydroxide 225 30 ml PO Q6-8H PRN 03/21/21 03/21/21 Unknown History mg-200 mg/5 mL oral suspension aspirin 81 mg tablet 81 mg PO DAILY 03/21/21 03/21/21 Unknown History atorvastatin 80 mg tablet 80 mg PO DAILY 03/21/21 03/21/21 Unknown History bisacodyl 10 mg rectal suppository 10 mg SC DAILY PRN 03/21/21 03/21/21 Unknown History dextromethorphan-guaifenesin 10 10 ml PO Q4H PRN 03/21/21 03/21/21 Unknown History mg-100 mg/5 mL oral syrup docusate sodium 100 mg tablet 100 mg PO BID PRN 03/21/21 03/21/21 Unknown History enalapril maleate 10 mg tablet 30 mg PO DAILY 03/21/21 03/21/21 Unknown History glipizide 10 mg tablet 10 mg PO DAILY 03/21/21 03/21/21 Unknown History levothyroxine 50 mcg tablet 50 mcg PO DAILY 03/21/21 03/21/21 Unknown History lidocaine 4 % topical patch 1 patch TOPICAL DAILY PRN 03/21/21 03/21/21 Unknown History (Lidocaine Pain Relief) magnesium citrate (Citrate of 150 ml PO BID PRN 03/21/21 03/21/21 Unknown History Magnesia) melatonin 3 mg tablet 3 mg PO BEDTIME 03/21/21 03/21/21 Unknown History metformin 1,000 mg tablet 1,000 mg PO BID 03/21/21 03/21/21 Unknown History sitagliptin 100 mg tablet 100 mg PO DAILY 03/21/21 03/21/21 Unknown History Physical Exam Vital Signs: Vital Signs: Last Vital Signs Temp 96.3 F L 03/22/21 11:19 Pulse 98 03/22/21 11:19 Resp 22 H 03/22/21 11:19 BP 150/74 H 03/22/21 11:19 Pulse Ox 93 03/22/21 11:19 Body Mass Index 17.6 Const: Other: Patient has cracked lips, very dry mucosal membranes including tongue, and appears significantly dehydrated General: cooperative and no acute distress Eyes: General: appearance normal, both eyes and all related structures Resp: Effort & Inspection: normal respiratory effort Auscultation: clear to auscultation bilaterally Cardio: Rate: regular rate Rhythm: regular rhythm GI: Palpation (GI): Soft to palpation Auscultation: normal bowel sounds Skin: Other: Appears dehydrated General skin exam: no rashes or lesions noted Neuro: Other: Patient is confused, agitated and restless and very uncooperative, unable to follow commands, he moves all 4 extremities without clear weakness. Reflexes are hypoactive. Mild nuchal rigidity. Plantar responses are extensor. Gait was not tested. Extrem: General: Yes normal to inspection and Yes no pedal edema Results Labs CBC & Chem 7: 03/21/21 09:05 03/21/21 09:05 Assessment and Plan (1) CVA (cerebral vascular accident): Status: Acute Acute right occipital and medial temporal ischemic infarct superimposed on advanced dementia and multiple stroke risk factors. Recommendations PT OT. Medications to control agitation. Control blood pressure and sugar. Continue atorvastatin. Aspirin 81 mg a day. (2) Fall: Qualifiers: Encounter type: initial encounter Qualified Code(s): W19.XXXA - Unspecified fall, initial encounter Status: Acute (3) RAMÍREZ (acute kidney injury): Status: Acute 70-year-old detention resident who presents to the hospital after an unwitnessed fall found to have CVA # CVA - as seen on CT of the head, subacute versus chronic - unable to assess for any neurological deficits as patient is confused and not following commands - will admit for MRI - neurology consulted - aspirin and high-dose statin # fall - most likely secondary to CVA - this was unwitnessed - no evidence of infection, no abnormal EKG findings - PT OT consult # diabetes - hold oral antihyperglycemics - will place him on low-dose sliding scale insulin - diabetic diet # RAMÍREZ - patient appears very dehydrated - will start on IV fluids - follow BMP # hypertension - elevated - continue home enalapril # gout - continue allopurinol DVT prophylaxis: Heparin subQ Procedures Date of Service Date of Service: 03/21/21
[2021-03-22 15:45] VITALS: BP 151/67; PULSE 68; RESP 20; TEMP 36.9; O2SAT 98
--- NOTE | 2021-03-22 16:08 | P.PNIM_ITS ---
Subjective Subjective Date of Service: 03/22/21 Interval History: No acute issues overnight. Mildly agitated; IV Haldol with minimal relief. Remains nonverbal Review of Systems Review of Systems: Yes Unobtainable due to mental condition Physical Exam Vital Signs: Vital Signs: Last Vital Signs Temp 98.4 F 03/22/21 15:45 Pulse 68 03/22/21 15:45 Resp 20 03/22/21 15:45 BP 151/67 H 03/22/21 15:45 Pulse Ox 98 03/22/21 15:45 Body Mass Index 17.6 Const: Other: Nonverbal HENMT: Other: Membranes dry Resp: Auscultation: clear to auscultation bilaterally, no rales, no rhonchi a nd no wheezes Cardio: Rate: regular rate Rhythm: regular rhythm Heart sounds: S1 normal heart sound present, S2 normal heart sound present and no murmurs GI: Other: Soft nontender nondistended with normoactive bowel sounds. No peritoneal signs Neuro: Other: Confused agitated restless. Moves all extremities with equal power gait not tested Extrem: General: Yes normal to inspection Objective Data Active Medications Al Hydroxide/Mg Hydroxide (Magnesium Hydrox/Alum Hydrox 30 Ml Oral.Susp) 30 ml PO Q6H PRN PRN Reason: Dyspepsia Allopurinol (Allopurinol 300 Mg Tablet) 300 mg PO DAILY [facility] Last Admin: 03/22/21 08:09 Dose: Not Given Documented by: MELISSA Non-Admin Reason: NPO Aspirin (Aspirin Enteric Coated 81 Mg Tablet.) 81 mg PO DAILY [facility] Last Admin: 03/22/21 08:07 Dose: Not Given Documented by: MELISSA Non-Admin Reason: NPO Atorvastatin Calcium (Atorvastatin Calcium 80 Mg Tablet) 80 mg PO DAILY [facility] Last Admin: 03/22/21 08:08 Dose: Not Given Documented by: MELISSA Non-Admin Reason: NPO Bisacodyl (Bisacodyl 10 Mg Supp.Rect) 10 mg [place] DAILY PRN PRN Reason: Constipation Dextrose (Dextrose 50 % 25 Gm/50 Ml Vial) 25 gm IVPUSH Q15M PRN; Protocol PRN Reason: per Hypoglycemia Standing Ord. Docusate Sodium (Docusate Sodium 100 Mg Capsule) 100 mg PO BID PRN PRN Reason: Constipation Enalapril Maleate (Enalapril Maleate 10 Mg Tablet) 30 mg PO DAILY [facility]; Protocol Last Admin: 03/22/21 08:09 Dose: Not Given Documented by: MELISSA Non-Admin Reason: NPO Glucose (Glucose Gel 15 Gm Gel..Gram.) 15 gm PO Q15M PRN; Protocol PRN Reason: per Hypoglycemia Standing Ord. Guaifenesin/Dextromethorphan (Guaifenesin Dm 100/10/5 Ml 5 Ml Syrup) 10 ml PO Q4H PRN PRN Reason: Cough Heparin Sodium (Porcine) (Heparin Sodium,Porcine 5,000 Unit/Ml Vial) 5,000 unit SUBCUT Q12H [facility] Last Admin: 03/22/21 06:31 Dose: 5,000 unit Documented by: ANA Hydroxyzine HCl (Hydroxyzine Hcl 50 Mg/Ml Vial) 25 mg IM Q6H PRN PRN Reason: agitation/restlessness Last Admin: 03/22/21 11:22 Dose: 25 mg Documented by: MELISSA Sodium Chloride (Ns) 1,000 mls @ 100 mls/hr IVCONT .Q10H [facility] Last Admin: 03/22/21 05:16 Dose: 100 mls/hr Documented by: ANA Insulin Human Lispro (Insulin Lispro 100 Unit/Ml 3 Ml Vial) 0 unit SUBCUT QIDACHS [facility]; Protocol Last Admin: 03/22/21 11:47 Dose: 2 unit Documented by: MELISSA Levothyroxine Sodium (Levothyroxine Sodium 25 Mcg Tablet) 50 mcg PO DAILY@0630 [facility] Last Admin: 03/22/21 06:23 Dose: Not Given Documented by: ANA Non-Admin Reason: NPO Lidocaine (Lidocaine 4 % Patch Adh..Patch) 1 patch TRANSDERMA DAILY PRN; Protocol PRN Reason: Pain Magnesium Citrate (Magnesium Citrate 300 Ml Solution) 150 ml PO BID PRN PRN Reason: Constipation Melatonin (Melatonin 3 Mg Tablet) 3 mg PO BEDTIME [facility] Last Admin: 03/21/21 20:06 Dose: Not Given Documented by: ANA Non-Admin Reason: NPO Labs CBC & Chem 7: 03/21/21 09:05 03/21/21 09:05 Labs: Laboratory Results - last 24 hr 03/21/21 03/21/21 03/21/21 17:22 19:50 20:49 POC Glucose 205 H 110 101 Triglycerides Cholesterol LDL Cholesterol, Calc HDL Cholesterol 03/22/21 03/22/21 03/22/21 07:05 07:06 11:18 POC Glucose 130 H 153 H Triglycerides 85 Cholesterol 115 LDL Cholesterol, Calc 62 HDL Cholesterol 36 Assessment and Plan (1) CVA (cerebral vascular accident): Status: Acute Assessment and Plan: 70-year-old [place] [facility] resident with new acute right occipital and medial temporal ischemic infarct superimposed on advanced dementia 1. Acute right occipital medial temporal ischemic infarct Continue statin and antihypertensives; hydroxyzine for agitation. PT OT consult 2. DMII: Sugars acceptable on current regimen. Hold orals. Will cover with sliding scale and adjust as indicated 3. RAMÍREZ:: Switch to D5 half-normal saline at 100 an hour. Check labs in a.m. 4. HTN: Acceptable control on current therapies adjust as indicated DVT prophylaxis: Heparin subQ Quality Stroke Does the patient have a stroke diagnosis?: No VTE Prior VTE?: No VTE Risk Level:: Medical - moderate - high VTE Device Contraindication: Treatment Not Indicated VTE Drug Contraindication: N/A - Med Ordered
[2021-03-22 16:14] LABS: Glucose, Whole Blood 167 mg/dL (60-115)
[2021-03-22] MEDS: Dextrose 5 % and 0.45 % NaCl 1,000 ML 100 ML IVCONT (16:27)
[2021-03-22 17:10] LABS: Alanine Aminotransferase 23 U/L (0-40); Albumin Level 2.9 g/dL (3.5-5.0); Alkaline Phosphatase 130 U/L (39-117); Anion Gap 15 (12-20); Bilirubin Total 0.7 mg/dL (0.0-1.0); Blood Urea Nitrogen 15 mg/dL (9-16); Carbon Dioxide 21 mmol/L (22-29); Chloride 114 mmol/L (96-108); Creatinine Clr Calc Pharmacy 55.5; Estimated Glomerular Filt Rate > 60; Glucose Fasting 176 mg/dL (60-99); Potassium 3.6 mmol/L (3.3-5.1); Sodium 146 mmol/L (135-145)
[2021-03-22 17:26] LABS: Aspartate Amino Transferase 23 U/L (5-37); Calcium 8.1 mg/dL (8.4-10.2); Total Protein 5.2 g/dL (6.5-8.0)
[2021-03-22 19:23] VITALS: BP 126/80; PULSE 82; RESP 22; TEMP 36.4; O2SAT 97
[2021-03-22 20:22] LABS: Glucose, Whole Blood 178 mg/dL (60-115)
[2021-03-22 23:49] VITALS: BP 117/57; PULSE 53; RESP 18; TEMP 36.1; O2SAT 100
[2021-03-23] MEDS: Dextrose 5 % and 0.45 % NaCl 1,000 ML 100 ML IVCONT ×2 (02:51→12:34)
[2021-03-23 03:32] VITALS: BP 138/57; PULSE 116; RESP 18; TEMP 36.4; O2SAT 96
[2021-03-23] MEDS: Heparin Sodium,Porcine 5,000 UNIT/ML VIAL 5000 UNIT SUBCUT (05:24)
[2021-03-23] MEDS: hydrOXYzine HCL 50 MG/ML VIAL 25 MG IM (05:24)
[2021-03-23 06:29] LABS: MANUAL DIFF FLAG NO
[2021-03-23 06:59] LABS: Basophils Absolute Auto 0.1 X10*3/uL (0.0-0.2); Basophils Percent Auto 0.9 % (0-2); Eosinophils Absolute Auto 0.2 X10*3/uL (0.0-0.4); Hematocrit 35.5 % (42-52); Imm Gran Abs Auto 0.02 X10*3/uL (0.00-0.03); Imm Gran Pct Auto 0.3 % (0.0-0.4); Lymphocytes Percent Auto 27.2 % (20-40); Mean Corpuscular HGB Conc 33.8 g/dl (31.0-36.0); Mean Corpuscular Hemoglobin 29.6 pg (27.0-33.0); Mean Corpuscular Volume 87.7 fL (80-98); Mean Platelet Volume 10.3 fL (9.4-12.4); Monocytes Absolute Auto 0.5 X10*3/uL (0.1-1.2); Monocytes Percent Auto 6.2 % (2-11); Neutrophils Absolute Auto 4.6 X10*3/uL (2.0-8.3); Neutrophils Percent Auto 62.4 % (45-73); Platelet Count 217 X10*3/uL (160-400); Red Blood Count 4.05 X10*6/uL (4.60-5.80); Red Cell Distribution Width 14.4 % (11.0-16.0); White Blood Count 7.4 X10*3/uL (4.8-10.8)
[2021-03-23 07:11] VITALS: BP 188/76; PULSE 57; RESP 19; O2SAT 95
[2021-03-23 07:50] LABS: Glucose, Whole Blood 229 mg/dL (60-115)
[2021-03-23] MEDS: Insulin Lispro 100 UNIT/ML 3 ML VIAL SUBCUT ×2 (08:26→11:50)
--- NOTE | 2021-03-23 08:35 | P.CDIC_ITS ---
CDI Concurrent Query Documentation Clarification: PHYSICIAN'S DOCUMENTATION REQUEST Date of Query: 03/23/21 0837 Patient Name: Maldonado Chavez Admit Date: 03/21/21 Dear Doctor, A review of the medical record indicates additional documentation may be needed. Please review below and update the documentation accordingly. Clinical Indicators: The following diagnoses or signs and symptoms were noted in the patient record: Risk Factors/Clinical Indicators/Treatments Per ED notes, patient blind, deaf, Dementia Altered mental status Based on the above, could you clarify in the Progress Notes the appropriate diagnosis, if significant, that supports the above abnormalities and additional evaluation, monitoring, and/or treatment rendered: Dementia, please specify type ( Vascular, Alzheimer, etc ) * Other (please specify) * Unable to determine Use of terms such as suspected, likely, concern for, or probable (associated with a specific diagnosis that is being evaluated, monitored, or treated as if it exists) are acceptable and can be coded in the inpatient setting, when documented at the time of discharge. Thank you, Mckenna Thompson RN Extension: [phone] Please use your independent medical judgment in providing your response. THIS QUERY IS PART OF THE PERMANENT MEDICAL RECORD
--- NOTE | 2021-03-23 09:27 | PC.NURSE ---
Skin/wound assessment completed today. Patient has a stage 2 to coccyx and a scratch to left hand. Pressure ulcer treated will Triad covered with foam and Scratch treated with Xeroform covered with foam. Patient also has a scab scratch on right eugene. No other skin issues noted at this time.
[2021-03-23 11:09] VITALS: BP 113/59; PULSE 54; RESP 19; TEMP 36.4; O2SAT 95
[2021-03-23 11:19] LABS: Glucose, Whole Blood 175 mg/dL (60-115)
[2021-03-23] MEDS: Atorvastatin Calcium 80 MG TABLET PO (11:50)
[2021-03-23 11:51] VITALS: BP 113/59; PULSE 54
[2021-03-23] MEDS: Enalapril Maleate 10 MG TABLET 30 MG PO (11:51)
[2021-03-23] MEDS: allopurinoL 300 MG TABLET PO (11:51)
--- NOTE | 2021-03-23 12:13 | MHC.SL.SWA ---
Speech Pathologist Impression: Risk of Aspiration Oralpharyngeal Dysphagia Risk of Aspiration Due to: Neurological Condition Reduced Cognition Dysphasia Diet Status: Upgrade Liquid Consistency and Strategies for Safe Swallow: Liquid Intake Recommendation: Pudding Thick Liquid Intake Strategies: Liquids by Teaspoon Only Solid Food Consistency: Dietary Recommendations: Pureed (NDD1) Additional Modifications to Solid Foods: Recommend PUREED solids (NDD1) and PUDDING THICK liquids (SINGLE CONSISTENCY), with pills CRUSHED in PUREE. Patient requires 1:1 assistance feeding. 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 Recommend food/liquid to be presented for patient to see on his right side. Patient appears more aware of bolus when given 3/4-full teaspoon amount. Recommend oral cavity check to ensure clearance. Recommend strict aspiration precautions and oral care routine. Monitor closely for s/s of aspiration during meals. Tray may need to be withheld depending on mental status. Oral Medication Intake: Crushed with Puree Compensatory Strategies and Precautions to be Taken for Safe Swallow: Sitting Upright (90 deg) Liquids from Spoon Small Bites and Sips Rate of Ingestion Change Oral Check Supervision While Eating and Drinking for Safe Swallow: Total Assistance Swallowing Recommended Treatments: Compens. Strategy Educat. Recommendation for Speech: Inpatient Speech Therapy Comment: CLOTHES SHAKER to continue to follow patient daily during hospitalization. Addiction Psychiatrist Clinican/Clinical Fellow: No Supervisory Statement: I have reviewed and agree with the student/clinical fellow's documentation: N/A Speech Language Pathologist: Rochelle Wan M.A., CCC-CLOTHES SHAKER
--- NOTE | 2021-03-23 13:47 | PM.DS ---
DS: Providers Provider Date of Service: 03/23/21 Date of admission: 03/21/21 01:36 Date of discharge: 03/23/21 Primary care physician: Liya Eugene MD Attending physician on admission: Cesar Watts Consults: 03/21/21 01:54 Consult to Neurology Routine Consulting Provider: [facility] Reason for consultation: stroke Has provider been notified: No DS: Diagnosis Discharge Diagnosis (1) CVA (cerebral vascular accident): Start date: 03/23/21 Status: Acute DS: Summary Hospital Course Hospital Course: 70-year-old male admitted 03/21/2021 with diagnosis of confusion and worsening mental status in the backdrop of known dementia. He was admitted in Neuro consult was obtained. MRI demonstrated an acute right occipital and medial temporal ischemic infarct. Neurology's recommendation were to screen PT OT continue blood pressure and sugar control and continue statin. His hospital course was essentially unremarkable except for some mild agitation which was managed somewhat with IM hydroxyzine. At this point in time he is medically stable for discharge to long-term care Status at Discharge Functional status at discharge: bed bound Time Spent with Patient Time attestation: Total time spent providing and/or coordinating discharge services: Discharge coordination time: Greater than 30 minutes Quality: Stroke Does the patient have a stroke diagnosis?: No Physical Exam Vital Signs: Vital Signs: Last Vital Signs Temp 97.5 F 03/23/21 11:09 Pulse 54 03/23/21 11:51 Resp 19 03/23/21 11:09 BP 113/59 L 03/23/21 11:51 Pulse Ox 95 03/23/21 11:09 Body Mass Index 17.6 Const: Other: Nonverbal. Staff states no acute issues overnight HENMT: Other: Membranes dry Resp: Auscultation: clear to auscultation bilaterally, no rales, no rhonchi and no wheezes Cardio: Rate: regular rate Rhythm: regular rhythm Heart sounds: S1 normal heart sound present, S2 normal heart sound present and no murmurs GI: Other: Soft nontender nondistended with normoactive bowel sounds. No peritoneal signs Neuro: Other: Moving all extremities; Extrem: General: Yes normal to inspection DS: Data Data Completed and Pending Labs on day of discharge: Laboratory Results - last 24 hr 03/22/21 03/22/21 03/22/21 16:06 16:25 20:15 WBC RBC Hgb Hct MCV MCH MCHC RDW Plt Count MPV Immature Gran % (Auto) Neut % (Auto) Lymph % (Auto) [place] % (Auto) Eos % (Auto) Baso % (Auto) Lymph # (Auto) [place] # (Auto) Eos # (Auto) Baso # (Auto) Abs Immat Gran (auto) Absolute Neuts (auto) Absolute Nucleated RBC Nucleated RBC % (auto) Sodium 146 H Potassium 3.6 Chloride 114 H Carbon Dioxide 21 L Anion Gap 15 BUN 15 Creatinine 0.96 Estim Creat Clear Calc 55.5 Estimated GFR > 60 POC Glucose 167 H 178 H Fasting Glucose 176 H Calcium 8.1 L D Total Bilirubin 0.7 AST 23 D ALT 23 Alkaline Phosphatase 130 H Total Protein 5.2 L D Albumin 2.9 L 03/23/21 03/23/21 03/23/21 06:10 07:44 11:09 WBC 7.4 RBC 4.05 L Hgb 12.0 L Hct 35.5 L MCV 87.7 MCH 29.6 MCHC 33.8 RDW 14.4 Plt Count 217 MPV 10.3 Immature Gran % (Auto) 0.3 Neut % (Auto) 62.4 Lymph % (Auto) 27.2 [place] % (Auto) 6.2 Eos % (Auto) 3.0 Baso % (Auto) 0.9 Lymph # (Auto) 2.0 [place] # (Auto) 0.5 Eos # (Auto) 0.2 Baso # (Auto) 0.1 Abs Immat Gran (auto) 0.02 Absolute Neuts (auto) 4.6 Absolute Nucleated RBC 0.000 Nucleated RBC % (auto) 0.0 Sodium Potassium Chloride Carbon Dioxide Anion Gap BUN Creatinine Estim Creat Clear Calc Estimated GFR POC Glucose 229 H 175 H Fasting Glucose Calcium Total Bilirubin AST ALT Alkaline Phosphatase Total Protein Albumin Discharge Plan Discharge Patient Disposition: Xfer LTC Discharge Diagnosis: CVA Referrals: Liya Eugene MD [Primary Care Provider] - 2 days Discharge Medications: Continued atorvastatin 80 mg Tablet 80 mg PO DAILY RF: 0 acetaminophen 650 mg Tablet 650 mg PO Q4H PRN (Reason: Fever Or Pain) RF: 0 bisacodyl 10 mg Suppository 10 mg OR DAILY PRN (Reason: Constipation) RF: 0 magnesium citrate [Citrate of Magnesia] Solution 150 ml PO BID PRN (Reason: Constipation) RF: 0 allopurinol 300 mg Tablet 300 mg PO DAILY RF: 0 aspirin 81 mg Tablet 81 mg PO DAILY RF: 0 docusate sodium 100 mg Tablet 100 mg PO BID PRN (Reason: Constipation) RF: 0 enalapril maleate 10 mg Tablet 30 mg PO DAILY RF: 0 levothyroxine 50 mcg Tablet 50 mcg PO DAILY RF: 0 aluminum-magnesium hydroxide 225-200 mg/5 mL Suspension 30 ml PO Q6-8H PRN (Reason: Dyspepsia) RF: 0 Discontinued lidocaine [Lidocaine Pain Relief] 4 % Adhesive Patch,Medicated 1 patch TOPICAL DAILY PRN (Reason: Pain) RF: 0 glipizide 10 mg Tablet 10 mg PO DAILY RF: 0 melatonin 3 mg Tablet 3 mg PO BEDTIME RF: 0 dextromethorphan-guaifenesin [Guaifenesin DM] 10-100 mg/5 mL Syrup 10 ml PO Q4H PRN (Reason: Cough) RF: 0 metformin 1,000 mg Tablet 1,000 mg PO BID RF: 0 sitagliptin 100 mg Tablet 100 mg PO DAILY RF: 0 Discharge Orders: Discharge Order (Routine); Ordered 03/23/21 Ordered By: Cesar Watts Activity on Discharge: As per LTC Stand Alone Forms: Patient Portal Discharge page Care Plan Goals: As per LTC Health Concerns: Supportive therapy for CVA Plan of Treatment: As per long-term care Assessment: Stable upon discharge Patient Instructions: Fall Prevention (ED)
[2021-03-23 14:33] VITALS: BMI 17.6
--- NOTE | 2021-03-23 14:37 | MHC.CLN ---
RE: CONSULT PT IS MODERATELY MALNOURISHED PT WITH MILDLY DEPLETED SUBCUTANEOUS FAT AND MUSCLE MASS, BMI 17.6 WITH POOR PO INTAKE, CHEWING/SWALLOWING DIFFICULTIES FOLLOWING A CVA AND INCREASED NUTRITION RISK R/T PRESSURE INJURY. DIET RX: PUREED WITH PUDDING THICK-APPROPRIATE RECOMMEND ADDING ENSURE BID, ENSURE PUDDING TID AND SOLEDAD TO INCREASE KCALS AND PROMOTE WOUND HEALING MONITOR PO INTAKE CLOSELY SEE ALSO CLINICAL NUTRITION ASSESSMENT
--- NOTE | 2021-03-23 15:15 | MHC.CM.PN ---
IMM 03/21/21 Male 70 dx cva Patient is discharged back to [facility] via BLS. Info has been sent to the facility. His son William was called and notified of the Pts return to [facility].. @ 4pm today.
[2021-03-23 15:23] VITALS: BP 114/50; PULSE 53; RESP 22; TEMP 36.3; O2SAT 96
[2021-03-23 15:46] LABS: Influenza A PCR NEGATIVE (Negative); Influenza B PCR NEGATIVE (Negative); Resp Syncy Virus RNA Qual PCR NEGATIVE (Negative); SARS COV2 PCR INHOUSE NEGATIVE (Negative)
== END 2021-03-23 16:00 | DRG 65 ==
LOC: HO.ED 03-21 01:34 → HO.EDOVER 03-21 01:43 → HO.IMC 03-21 14:51
PROVIDERS: Internal Medicine; Admitting Provider Internal Medicine; Emergency Provider Emergency Medicine; PCP Internal Medicine; Visit Provider Hospitalist
DX: I63.531 Cerebral infarction due to unspecified occlusion or stenosis of right posterior cerebral artery (principal); N17.9 Acute kidney failure, unspecified; M10.9 Gout, unspecified; E78.5 Hyperlipidemia, unspecified; E03.9 Hypothyroidism, unspecified; F03.90 Unspecified dementia, unspecified severity, without behavioral disturbance, psychotic disturbance, mood disturbance, and anxiety; E11.9 Type 2 diabetes mellitus without complications; H54.7 Unspecified visual loss; H91.90 Unspecified hearing loss, unspecified ear; I10 Essential (primary) hypertension; Z91.81 History of falling; Z20.822 Contact with and (suspected) exposure to COVID-19; Z79.82 Long term (current) use of aspirin; Z79.890 Hormone replacement therapy; Z79.899 Other long term (current) drug therapy
CPT/HCPCS: 0241U; 36415; 70450; 70551; 71045; 80048; 80053; 80061; 80076; 81001; 82947; 83690; 83880; 84484; 85025; 87635; 92610; 93005; 97163; 97167; 99285; J1200

== ENCOUNTER 2021-04-04 14:19 | Inpatient (IN) | payer MEDICARE, MEDICAID, OTHER, SELFPAY ==
[2021-04-04] VITALS (14 sets, daily range): BP systolic 94–131; BP diastolic 54–87; PULSE 95–144; RESP 13–40; TEMP 37.1–39.3; O2SAT 83–100; BMI 18.7
--- NOTE | ~2021-04-04 | XR_ITS ---
EXAMINATION: XR CHEST CLINICAL INFORMATION: Hypoxia COMPARISON: 04/04/2021 TECHNIQUE: Frontal view of the chest was obtained. FINDINGS: Report overlies the chest. Cardiac leads overlie the chest. The lungs are well expanded. Increased hazy opacity at the right base. No pleural effusion or pneumothorax. The cardiomediastinal silhouette is normal in size. XR/XR chest 1V IMPRESSION: Increased hazy opacity at the right base which could represent atelectasis or pneumonia.
--- NOTE | ~2021-04-04 | XR_ITS ---
EXAMINATION: XR CHEST CLINICAL INFORMATION: Shortness of breath COMPARISON: 03/20/2021 TECHNIQUE: Frontal view of the chest was obtained. FINDINGS: No focal consolidation, pulmonary edema, or pleural effusion. Stable cardiomediastinal silhouette. XR/XR chest 1V IMPRESSION: No acute cardiopulmonary findings.
[2021-04-04] MEDS: Acetaminophen Supp 650 MG SUPP.RECT PR (14:45)
--- NOTE | 2021-04-04 14:49 | ECG_ITS ---
Test Reason : TACYCARDIA Blood Pressure : / mmHG Vent. Rate : 135 BPM Atrial Rate : 135 BPM P-R Int : 124 ms QRS Dur : 070 ms QT Int : 294 ms P-R-T Axes : 064 062 -60 degrees QTc Int : 441 ms Sinus tachycardia Possible Left atrial enlargement Nonspecific ST and T wave abnormality Abnormal ECG When compared with ECG of 20-MAR-2021 23:57, ST now depressed in Inferior leads ST now depressed in Lateral leads Referred By: Yolis Ceron Electronically Signed By:NOHEMI VU MD
--- NOTE | 2021-04-04 15:05 | ED.GENADULT ---
HPI - General Adult General Chief complaint: General Medical Stated complaint: DNR/DNI W/GCF OF 3 FROM [facility] Time Seen by Provider: 04/04/21 14:45 History of Present Illness HPI narrative: 70-year-old male with a previous history of CVA. Patient was just discharged from the hospital in March 23. Presents today with having change in mental status. Patient unable to give details secondary to his altered mental status. According to the assisted patient is a do not resuscitate do not intubate. Okay to transfer to hospital. Unable to reach son. Patient was sent to the emergency department for further evaluation. Related Data Home Medications Medication Instructions Recorded Confirmed acetaminophen 650 mg tablet 650 mg PO Q4H PRN 03/21/21 03/21/21 allopurinol 300 mg tablet 300 mg PO DAILY 03/21/21 03/21/21 aluminum-magnesium hydroxide 225 30 ml PO Q6-8H PRN 03/21/21 03/21/21 mg-200 mg/5 mL oral suspension aspirin 81 mg tablet 81 mg PO DAILY 03/21/21 03/21/21 atorvastatin 80 mg tablet 80 mg PO DAILY 03/21/21 03/21/21 bisacodyl 10 mg rectal suppository 10 mg [place] DAILY PRN 03/21/21 03/21/21 docusate sodium 100 mg tablet 100 mg PO BID PRN 03/21/21 03/21/21 enalapril maleate 10 mg tablet 30 mg PO DAILY 03/21/21 03/21/21 levothyroxine 50 mcg tablet 50 mcg PO DAILY 03/21/21 03/21/21 magnesium citrate (Citrate of 150 ml PO BID PRN 03/21/21 03/21/21 Magnesia) Allergies Allergy/AdvReac Type Severity Reaction Status Date / Time No Known Allergies Allergy Verified 03/20/21 23:19 Review of Systems Review of Systems: Unable to obtain review systems secondary to patient's condition PMF Past Medical History Medical History RAMÍREZ (acute kidney injury) Altered mental status CVA (cerebral vascular accident) Diabetes Gout HLD (hyperlipidemia) Social History Social History Household Members: Other Housing: Skilled Nursing Unable to assess alcohol history related to: Unable to respond Alcohol intake: never Patient Tobacco Use Status: Never used Tobacco Advance Directives: Yes Advance Directives on File: Yes Advance Directives Date on File: 04/04/21 service: No Current occupational status: retired Physical Exam Vital Signs: Vital Signs: Last Vital Signs Temp 98.7 F 04/04/21 16:26 Pulse 115 H 04/04/21 16:26 Resp 26 H 04/04/21 16:26 BP 131/74 04/04/21 16:26 Pulse Ox 97 04/04/21 16:26 Body Mass Index 18.7 Appearance: Toxically appearing terminal appearing patient Eyes: Pupils equal, round and reactive to light. ENT: Mucous membrane is dry mouth breathing Neck: Normal inspection. Neck supple. No lymph nodes noted. No crepitus CVS: Normal heart rate and rhythm. Pulses normal. Normal S1 and S2 Respiratory: Positive breath sounds bilaterally Abdomen: Soft and nontender. No rigidity. No distention. good BS x4 Skin: Skin warm and dry. Normal skin color. Normal skin turgor. Extremities: No lower extremity edema. Neurovascular intact to all extremities. No Lacerations. No Rash Neuro: Min grimace to painful stimuli. No gag reflex noted. Not moving extremities Procedures Lumbar Puncture Time Out Performed: Yes Patient Position: left lateral decubitus Skin Prep: Povidone-Iodine 1% Local Anesthetic: lidocaine 1% Amount of anesthesia used (mL): 5 Interspace Used: L4-L5 Fluid Initially Obtained: clear Complications: none and Need to have other Practitioner Attempt Medical Decision Making MDM Narrative Medical decision making narrative: Patient temp was noted to be 102.8. Question contributed to the altered mental status. Rectal Tylenol was given. IV fluid given at 30 cc/kilos. Culture antibiotic will be started. Lactate pending. Attempted to contact patient's next of kin including patient's son, patient's brother patient's [place]. There is no answer. Patient sodium came back in the 164 range in the setting of extremely elevated sugar of over 600. Patient's corrected sodium is closer to 170. Patient's BUN and creatinine elevated consistent with renal insufficiency. Patient had a fever of 102.8 of question etiology. Chest x-ray showed no focal infiltrates. Urine showed no evidence of infection. Search patient's body throughout there is a decubital ulcer that did not appear to account for the high fever. correction did not report any nausea vomiting diarrhea. Patient's COVID test was negative. In light of this finding altered mental status and LP was done. The LP showed clear fluid. The results of the LP is still pending. Patient was given 2 g of cefepime as he was recently in the hospital. In addition patient was given vancomycin. Patient's case discussed with the accounting coordinator. Agree with a 30 cc/kilos bolus of IV fluids. Agree with additional 1 L of 1/2 normal saline. Patient's case discussed with patient's family. Understood patient's prognosis is poor. Patient is going to the intensive care unit. Lab Data Result diagrams: 04/04/21 15:03 04/04/21 15:03 Labs: Lab Results 04/04/21 04/04/21 04/04/21 Range/Units 14:51 15:03 15:03 WBC 24.1 H (4.8-10.8) X10*3/uL RBC 4.91 D (4.60-5.80) X10*6/uL Hgb 14.5 D (14.0-18.0) g/dl Hct 45.9 D (42-52) % MCV 93.5 (80-98) fL MCH 29.5 (27.0-33.0) pg MCHC 31.6 (31.0-36.0) g/dl RDW 14.7 (11.0-16.0) % Plt Count 257 (160-400) X10*3/uL MPV 11.8 (9.4-12.4) fL Immature Gran % (Auto) 0.7 H (0.0-0.4) % Neut % (Auto) 92.0 H (45-73) % Lymph % (Auto) 5.1 L (20-40) % [place] % (Auto) 2.0 (2-11) % Eos % (Auto) 0.0 (0-4) % Baso % (Auto) 0.2 (0-2) % Lymph # (Auto) 1.2 (1.2-4.9) X10*3/uL [place] # (Auto) 0.5 (0.1-1.2) X10*3/uL Eos # (Auto) 0.0 (0.0-0.4) X10*3/uL Baso # (Auto) 0.1 (0.0-0.2) X10*3/uL Abs Immat Gran (auto) 0.17 H (0.00-0.03) X10*3/uL Absolute Neuts (auto) 22.1 H (2.0-8.3) X10*3/uL Absolute Nucleated RBC 0.000 (0.0-0.012) X10*3/uL Nucleated RBC % (auto) 0.0 (0.0-0.2) /100WBC Smear Tech's Comments VERIFIED PT 11.3 (9.9-13.0) SEC INR 1.0 (0.9-1.1) Sodium (135-145) mmol/L Potassium (3.3-5.1) mmol/L Chloride (96-108) mmol/L Carbon Dioxide (22-29) mmol/L Anion Gap (12-20) BUN (9-16) mg/dL Creatinine (0.5-1.4) mg/dL Estim Creat Clear Calc Estimated GFR POC Glucose 485 H* (60-115) mg/dL Random Glucose (60-115) mg/dL Lactic Acid (0.5-2.0) mmol/L Calcium (8.4-10.2) mg/dL Total Bilirubin (0.0-1.0) mg/dL Urine Color Urine Appearance Urine pH (5.0-8.0) Ur Specific [place] (1.005-1.025) Urine Protein (NEG-TRACE) MG/DL Urine Glucose (UA) (NEG) MG/DL Urine Ketones (NEG) MG/DL Urine Blood (NEG) Urine Nitrite (NEG) Ur Leukocyte Esterase (NEG) Urine RBC (0) /HPF Urine WBC (0-4) /HPF Ur Squamous Epith Cells /LPF Amorphous Sediment /LPF Urine Bacteria /LPF Granular Casts /LPF Urine Mucus /LPF Coronavirus (PCR) (Negative) Influenza Type A (PCR) (Negative) Influenza Type B (PCR) (Negative) RSV RNA Qual (PCR) (Negative) 04/04/21 04/04/21 04/04/21 Range/Units 15:03 15:03 15:03 WBC (4.8-10.8) X10*3/uL RBC (4.60-5.80) X10*6/uL Hgb (14.0-18.0) g/dl Hct (42-52) % MCV (80-98) fL MCH (27.0-33.0) pg MCHC (31.0-36.0) g/dl RDW (11.0-16.0) % Plt Count (160-400) X10*3/uL MPV (9.4-12.4) fL Immature Gran % (Auto) (0.0-0.4) % Neut % (Auto) (45-73) % Lymph % (Auto) (20-40) % [place] % (Auto) (2-11) % Eos % (Auto) (0-4) % Baso % (Auto) (0-2) % Lymph # (Auto) (1.2-4.9) X10*3/uL [place] # (Auto) (0.1-1.2) X10*3/uL Eos # (Auto) (0.0-0.4) X10*3/uL Baso # (Auto) (0.0-0.2) X10*3/uL Abs Immat Gran (auto) (0.00-0.03) X10*3/uL Absolute Neuts (auto) (2.0-8.3) X10*3/uL Absolute Nucleated RBC (0.0-0.012) X10*3/uL Nucleated RBC % (auto) (0.0-0.2) /100WBC Smear Tech's Comments PT (9.9-13.0) SEC INR (0.9-1.1) Sodium 164 H* (135-145) mmol/L Potassium 4.1 (3.3-5.1) mmol/L Chloride 121 H (96-108) mmol/L Carbon Dioxide 26 (22-29) mmol/L Anion Gap 21 H (12-20) BUN 54 H D (9-16) mg/dL Creatinine 2.93 H (0.5-1.4) mg/dL Estim Creat Clear Calc 17.7 Estimated GFR 21 POC Glucose (60-115) mg/dL Random Glucose 612 H* (60-115) mg/dL Lactic Acid 3.3 H* (0.5-2.0) mmol/L Calcium 9.1 D (8.4-10.2) mg/dL Total Bilirubin 0.5 (0.0-1.0) mg/dL Urine Color Urine Appearance Urine pH (5.0-8.0) Ur Specific [place] (1.005-1.025) Urine Protein (NEG-TRACE) MG/DL Urine Glucose (UA) (NEG) MG/DL Urine Ketones (NEG) MG/DL Urine Blood (NEG) Urine Nitrite (NEG) Ur Leukocyte Esterase (NEG) Urine RBC (0) /HPF Urine WBC (0-4) /HPF Ur Squamous Epith Cells /LPF Amorphous Sediment /LPF Urine Bacteria /LPF Granular Casts /LPF Urine Mucus /LPF Coronavirus (PCR) NEGATIVE (Negative) Influenza Type A (PCR) NEGATIVE (Negative) Influenza Type B (PCR) NEGATIVE (Negative) RSV RNA Qual (PCR) NEGATIVE (Negative) 04/04/21 Range/Units 15:03 WBC (4.8-10.8) X10*3/uL RBC (4.60-5.80) X10*6/uL Hgb (14.0-18.0) g/dl Hct (42-52) % MCV (80-98) fL MCH (27.0-33.0) pg MCHC (31.0-36.0) g/dl RDW (11.0-16.0) % Plt Count (160-400) X10*3/uL MPV (9.4-12.4) fL Immature Gran % (Auto) (0.0-0.4) % Neut % (Auto) (45-73) % Lymph % (Auto) (20-40) % [place] % (Auto) (2-11) % Eos % (Auto) (0-4) % Baso % (Auto) (0-2) % Lymph # (Auto) (1.2-4.9) X10*3/uL [place] # (Auto) (0.1-1.2) X10*3/uL Eos # (Auto) (0.0-0.4) X10*3/uL Baso # (Auto) (0.0-0.2) X10*3/uL Abs Immat Gran (auto) (0.00-0.03) X10*3/uL Absolute Neuts (auto) (2.0-8.3) X10*3/uL Absolute Nucleated RBC (0.0-0.012) X10*3/uL Nucleated RBC % (auto) (0.0-0.2) /100WBC Smear Tech's Comments PT (9.9-13.0) SEC INR (0.9-1.1) Sodium (135-145) mmol/L Potassium (3.3-5.1) mmol/L Chloride (96-108) mmol/L Carbon Dioxide (22-29) mmol/L Anion Gap (12-20) BUN (9-16) mg/dL Creatinine (0.5-1.4) mg/dL Estim Creat Clear Calc Estimated GFR POC Glucose (60-115) mg/dL Random Glucose (60-115) mg/dL Lactic Acid (0.5-2.0) mmol/L Calcium (8.4-10.2) mg/dL Total Bilirubin (0.0-1.0) mg/dL Urine Color YELLOW Urine Appearance CLEAR Urine pH 5.5 (5.0-8.0) Ur Specific [place] >= 1.030 H (1.005-1.025) Urine Protein 1+ H (NEG-TRACE) MG/DL Urine Glucose (UA) >=1000 H (NEG) MG/DL Urine Ketones 15 (NEG) MG/DL Urine Blood TRACE (NEG) Urine Nitrite NEG (NEG) Ur Leukocyte Esterase NEG (NEG) Urine RBC 1-4 (0) /HPF Urine WBC 0-2 (0-4) /HPF Ur Squamous Epith Cells TRACE /LPF Amorphous Sediment 1+ /LPF Urine Bacteria NONE /LPF Granular Casts 0-2 /LPF Urine Mucus 1+ /LPF Coronavirus (PCR) (Negative) Influenza Type A (PCR) (Negative) Influenza Type B (PCR) (Negative) RSV RNA Qual (PCR) (Negative) Critical Care Time Critical Care Time Critical Care Time: Yes Total Critical Care Time: 40 Attestation: I have personally provided 40 minutes of critical care time exclusive of time spent on separately billable procedures. Time includes review of lab data, radiology results, discussion with consultants, and monitoring for potential decompensation. Interventions were performed as documented above Discharge Plan Discharge Clinical Impression: Acute hyperglycemia, Renal failure, Acute alteration in mental status, Fever Patient Disposition: Admitted As Inpatient
[2021-04-04 15:08] LABS: Glucose, Whole Blood 485 mg/dL (60-115)
[2021-04-04 15:12] LABS: Basophils Absolute Auto 0.1 X10*3/uL (0.0-0.2); Basophils Percent Auto 0.2 % (0-2); Hematocrit 45.9 % (42-52); Hemoglobin 14.5 g/dl (14.0-18.0); Imm Gran Abs Auto 0.17 X10*3/uL (0.00-0.03); Imm Gran Pct Auto 0.7 % (0.0-0.4); Lymphocytes Absolute Auto 1.2 X10*3/uL (1.2-4.9); Lymphocytes Percent Auto 5.1 % (20-40); MANUAL DIFF FLAG SCAN; Mean Corpuscular HGB Conc 31.6 g/dl (31.0-36.0); Mean Corpuscular Hemoglobin 29.5 pg (27.0-33.0); Mean Corpuscular Volume 93.5 fL (80-98); Mean Platelet Volume 11.8 fL (9.4-12.4); Monocytes Absolute Auto 0.5 X10*3/uL (0.1-1.2); Neutrophils Absolute Auto 22.1 X10*3/uL (2.0-8.3); Platelet Count 257 X10*3/uL (160-400); Red Blood Count 4.91 X10*6/uL (4.60-5.80); Red Cell Distribution Width 14.7 % (11.0-16.0); SCAN SMEAR FLAG 1; White Blood Count 24.1 X10*3/uL (4.8-10.8)
[2021-04-04 15:13] LABS: Appearance Urine CLEAR; Color Urine YELLOW; Glucose Urine UA >=1000 MG/DL (NEG); Leukocyte Esterase Urine NEG (NEG); Nitrite Urine NEG (NEG); PH 5.5 (5.0-8.0); Specific Gravity - Urine >= 1.030 (1.005-1.025); Urine Blood TRACE (NEG); Urine Ketones 15 MG/DL (NEG); Urine Protein 1+ MG/DL (NEG-TRACE)
[2021-04-04 15:19] LABS: Prothrombin Time 11.3 SEC (9.9-13.0)
[2021-04-04 15:21] LABS: Granular Casts Urine 0-2 /LPF; Squamous Epithelial Cell Urine TRACE /LPF; WBC Urine 0-2 /HPF (0-4)
[2021-04-04 15:22] LABS: Amorphous Sediment Urine 1+ /LPF; Mucus Urine 1+ /LPF
[2021-04-04 15:24] LABS: Lactic Acid 3.3 mmol/L (0.5-2.0)
[2021-04-04] MEDS: cefEPime HCl 2 GM in 0.9 % Sodium Chloride 50 ML IV (15:33)
[2021-04-04 15:47] LABS: Anion Gap 21 (12-20); Bilirubin Total 0.5 mg/dL (0.0-1.0); Blood Urea Nitrogen 54 mg/dL (9-16); Calcium 9.1 mg/dL (8.4-10.2); Carbon Dioxide 26 mmol/L (22-29); Chloride 121 mmol/L (96-108); Creatinine Clr Calc Pharmacy 17.7; Estimated Glomerular Filt Rate 21; Glucose Random 612 mg/dL (60-115); Potassium 4.1 mmol/L (3.3-5.1); Sodium 164 mmol/L (135-145)
[2021-04-04 15:51] LABS: SLIDE REVIEW VERIFIED
[2021-04-04 16:13] LABS: Influenza A PCR NEGATIVE (Negative); Influenza B PCR NEGATIVE (Negative); Resp Syncy Virus RNA Qual PCR NEGATIVE (Negative); SARS COV2 PCR INHOUSE NEGATIVE (Negative)
[2021-04-04] MEDS: vancomycin HCL 1,000 MG in 0.9 % Sodium Chloride 250 ML 270 MG IV (16:21)
[2021-04-04] MEDS: Insulin Regular, Human 100 UNIT/ML 3 ML VIAL 10 UNIT IVPUSH (16:22)
[2021-04-04 17:07] LABS: Reflex Lactate? Lactic Acid Added
--- NOTE | 2021-04-04 17:08 | PM.CCHP ---
History of Present Illness Date of Service: 04/04/21 Attending physician on admission: Yolis Ceron Chief Complaint: Altered mental status 70-year-old male 2 weeks status post a CVA in 2 foci include including occipital and medial temporal and appears to be cachectic in marked metabolic disarray who is [place] a [place] [id number] with left shift negative urinalysis and I believe a chest x-ray that shows bibasilar infiltrates which could be consistent with aspiration but nonetheless clinically septic and focused examination revealed a shallow area of decubitus ulceration over the coccyx which is a questionable source but I do believe that there is aspiration of for which he is at considerable risk Clearly encephalopathic and markedly hyperosmolar and markedly hypernatremic and markedly hyperglycemic clearly a nonketotic hyperosmolar hyperglycemic coma and given recent hospitalization I agree with the ER store ice of cefepime and vancomycin x1 and in addition he has got it and acute on chronic stage III renal failure and he did receive direct was at 30 cc/kilos of IV fluids already and from here on I will use half-normal with potassium because will start him on IV insulin as well and every 3 hours monitor his BMP so as not to correct the sodium too fast Bedside echocardiogram demonstrates hyperdynamic left ventricle with globally normal systolic wall motion normal right ventricle and no primary valve or pericardial disease Review of Systems Review of Systems: Yes Unobtainable due to mental status PMFSH Past Medical History Medical History RAMÍREZ (acute kidney injury) Altered mental status CVA (cerebral vascular accident) Diabetes Gout HLD (hyperlipidemia) Social History Social History Household Members: Other Housing: Skilled Nursing Unable to assess alcohol history related to: Unable to respond Alcohol intake: never Patient Tobacco Use Status: Never used Tobacco Advance Directives: Yes Advance Directives on File: Yes Advance Directives Date on File: 04/04/21 service: No Current occupational status: retired Meds Allergies Allergy/AdvReac Type Severity Reaction Status Date / Time No Known Allergies Allergy Verified 03/20/21 23:19 Active Medications: Current Medications Potassium Chloride/Sodium Chloride () 20 meq in 1,000 mls @ 200 mls/hr IVCONT .Q5H ANGÉLICA Insulin Human Regular (Myxredlin) 100 unit in 100 mls @ 0 mls/hr IVCONT .Q0M ANGÉLICA; Protocol Levothyroxine Sodium (Levothyroxine Sodium 100 Mcg Vial) 25 mcg IVPUSH DAILY [facility] Home Medications Medication Instructions Recorded Confirmed Last Taken Type acetaminophen 650 mg tablet 650 mg PO Q4H PRN 03/21/21 03/21/21 Unknown History allopurinol 300 mg tablet 300 mg PO DAILY 03/21/21 03/21/21 Unknown History aluminum-magnesium hydroxide 225 30 ml PO Q6-8H PRN 03/21/21 03/21/21 Unknown History mg-200 mg/5 mL oral suspension aspirin 81 mg tablet 81 mg PO DAILY 03/21/21 03/21/21 Unknown History atorvastatin 80 mg tablet 80 mg PO DAILY 03/21/21 03/21/21 Unknown History bisacodyl 10 mg rectal suppository 10 mg CO DAILY PRN 03/21/21 03/21/21 Unknown History docusate sodium 100 mg tablet 100 mg PO BID PRN 03/21/21 03/21/21 Unknown History enalapril maleate 10 mg tablet 30 mg PO DAILY 03/21/21 03/21/21 Unknown History levothyroxine 50 mcg tablet 50 mcg PO DAILY 03/21/21 03/21/21 Unknown History magnesium citrate (Citrate of 150 ml PO BID PRN 03/21/21 03/21/21 Unknown History Magnesia) Physical Exam Vital Signs: Vital Signs: Last Vital Signs Temp 98.7 F 04/04/21 16:26 Pulse 120 H 04/04/21 16:46 Resp 13 04/04/21 16:46 BP 130/69 04/04/21 16:46 Pulse Ox 96 04/04/21 16:46 Body Mass Index 18.7 Unarousable Skin color normal with no livedo just a small decubitus over the coccyx Flat neck veins and very flat inferior vena cava and good bilateral carotid upstrokes Chest without adventitious sounds Abdomen scaphoid no organomegaly Results Labs CBC and Chem 7: 04/04/21 15:03 04/04/21 15:03 Labs: Laboratory Results - last 24 hr 04/04/21 04/04/21 04/04/21 14:51 15:03 15:03 MCV 93.5 MCH 29.5 MCHC 31.6 RDW 14.7 Plt Count 257 MPV 11.8 Immature Gran % (Auto) 0.7 H Neut % (Auto) 92.0 H Lymph % (Auto) 5.1 L Hawkins % (Auto) 2.0 Eos % (Auto) 0.0 Baso % (Auto) 0.2 Lymph # (Auto) 1.2 Hawkins # (Auto) 0.5 Eos # (Auto) 0.0 Baso # (Auto) 0.1 Abs Immat Gran (auto) 0.17 H Absolute Neuts (auto) 22.1 H Absolute Nucleated RBC 0.000 Nucleated RBC % (auto) 0.0 Smear Tech's Comments VERIFIED PT 11.3 INR 1.0 Anion Gap Estim Creat Clear Calc Estimated GFR POC Glucose 485 H* Random Glucose Lactic Acid Calcium Total Bilirubin Urine Color Urine Appearance Urine pH Ur Specific Maiden Urine Protein Urine Glucose (UA) Urine Ketones Urine Blood Urine Nitrite Ur Leukocyte Esterase Urine RBC Urine WBC Ur Squamous Epith Cells Amorphous Sediment Urine Bacteria Granular Casts Urine Mucus Coronavirus (PCR) Influenza Type A (PCR) Influenza Type B (PCR) RSV RNA Qual (PCR) 04/04/21 04/04/21 04/04/21 15:03 15:03 15:03 MCV MCH MCHC RDW Plt Count MPV Immature Gran % (Auto) Neut % (Auto) Lymph % (Auto) Hawkins % (Auto) Eos % (Auto) Baso % (Auto) Lymph # (Auto) Hawkins # (Auto) Eos # (Auto) Baso # (Auto) Abs Immat Gran (auto) Absolute Neuts (auto) Absolute Nucleated RBC Nucleated RBC % (auto) Smear Tech's Comments PT INR Anion Gap 21 H Estim Creat Clear Calc 17.7 Estimated GFR 21 POC Glucose Random Glucose 612 H* Lactic Acid 3.3 H* Calcium 9.1 D Total Bilirubin 0.5 Urine Color Urine Appearance Urine pH Ur Specific Maiden Urine Protein Urine Glucose (UA) Urine Ketones Urine Blood Urine Nitrite Ur Leukocyte Esterase Urine RBC Urine WBC Ur Squamous Epith Cells Amorphous Sediment Urine Bacteria Granular Casts Urine Mucus Coronavirus (PCR) NEGATIVE Influenza Type A (PCR) NEGATIVE Influenza Type B (PCR) NEGATIVE RSV RNA Qual (PCR) NEGATIVE 04/04/21 15:03 MCV MCH MCHC RDW Plt Count MPV Immature Gran % (Auto) Neut % (Auto) Lymph % (Auto) Hawkins % (Auto) Eos % (Auto) Baso % (Auto) Lymph # (Auto) Hawkins # (Auto) Eos # (Auto) Baso # (Auto) Abs Immat Gran (auto) Absolute Neuts (auto) Absolute Nucleated RBC Nucleated RBC % (auto) Smear Tech's Comments PT INR Anion Gap Estim Creat Clear Calc Estimated GFR POC Glucose Random Glucose Lactic Acid Calcium Total Bilirubin Urine Color YELLOW Urine Appearance CLEAR Urine pH 5.5 Ur Specific Maiden >= 1.030 H Urine Protein 1+ H Urine Glucose (UA) >=1000 H Urine Ketones 15 Urine Blood TRACE Urine Nitrite NEG Ur Leukocyte Esterase NEG Urine RBC 1-4 Urine WBC 0-2 Ur Squamous Epith Cells TRACE Amorphous Sediment 1+ Urine Bacteria NONE Granular Casts 0-2 Urine Mucus 1+ Coronavirus (PCR) Influenza Type A (PCR) Influenza Type B (PCR) RSV RNA Qual (PCR) Imaging Radiologist's Impressions: Impressions Chest X-Ray 04/04/21 14:46 IMPRESSION: No acute cardiopulmonary findings. Assessment and Plan (1) Acute hyperglycemia: Status: Acute (2) Renal failure: Status: Acute (3) Acute alteration in mental status: Status: Acute (4) Fever: Status: Acute (5) Sepsis: Status: Acute (6) Acute hypernatremia: Status: Acute (7) Hyperosmolar (nonketotic) coma: Status: Acute (8) Acute metabolic encephalopathy: Status: Acute We will initiate half normal saline but with 20 mEq of potassium per L and IV insulin drip in combination and will make decisions about further antibiotics in the morning Might reimage his chest in the morning after he is rehydrated to look for evidence of aspiration and keep him NPO pending swallow evaluation in the hopes that he awakens and a might need a decision about feeding tube at this point
[2021-04-04 17:22] LABS: CSF Appearance Clear, Colorless
[2021-04-04 17:25] LABS: CSF Tube # 2
[2021-04-04 17:38] LABS: Glucose CSF 288 mg/dL; Total Protein CSF 50.6 mg/dL (15-45)
[2021-04-04 17:38] LABS: Glucose, Whole Blood 347 mg/dL (60-115)
--- NOTE | 2021-04-04 17:43 | PC.NURSE ---
called to [facility] to see if they could fax med list for patient to verify meds, no answer from unit patient resides on.
[2021-04-04] MEDS: KCl 20 mEq in 0.45% Sod 20 MEQ/1,000 ML IV.SOLN 200 MEQ IVCONT ×2 (17:46→23:21)
[2021-04-04] MEDS: Insulin Regular/NS 100 UNIT/100 ML PLAST..BAG IVCONT (17:50)
--- NOTE | 2021-04-04 17:54 | PC.NURSE ---
call to Dr. Stone to notify of patient blood glucose now 347 after 10 units IV insulin. stated he still would like insulin drip to be administered but at starting rate 1unit/hour. witnessed insulin drip started with Arielle FELIX.
[2021-04-04 18:43] LABS: Appearance CSF CLEAR; CSF Tube # 4; CSF Volume 1.5 ML; Color CSF COLORLESS; Red Blood Cell CSF 1 MM*3; White Blood Cell CSF 2 MM*3
[2021-04-04 18:44] LABS: Lymphocytes CSF 100 %
--- NOTE | 2021-04-04 18:56 | PC.NURSE ---
ISIDRO Dillard calling ICU, POC 385 mg/dl. Per PA, to increase the insulin drip to 3 units/hr.
[2021-04-04 19:05] LABS: ~Lactic Acid-LAB USE ONLY 2.4 mmol/L (0.5-2.0)
--- NOTE | 2021-04-04 19:13 | PC.NURSE ---
Alex Thomas, HCP, to be contacted with updates regarding plan of care, .
--- NOTE | 2021-04-04 19:36 | PC.NURSE ---
Report given to ICU. PT is ready for transfer.
[2021-04-04 20:28] LABS: Glucose, Whole Blood 361 mg/dL (60-115)
[2021-04-04 20:42] LABS: Reflex Lactate? 2 Y
[2021-04-04] MEDS: Levothyroxine Sodium 100 MCG VIAL 25 MCG IVPUSH (20:50)
[2021-04-04 21:07] LABS: Glucose, Whole Blood 344 mg/dL (60-115)
[2021-04-04 21:17] LABS: ~Lactic Acid-LAB USE ONLY 4.1 mmol/L (0.5-2.0)
[2021-04-04 21:18] LABS: Anion Gap 18 (12-20); Blood Urea Nitrogen 53 mg/dL (9-16); Calcium 8.4 mg/dL (8.4-10.2); Carbon Dioxide 24 mmol/L (22-29); Chloride 127 mmol/L (96-108); Estimated Glomerular Filt Rate 23; Glucose Random 439 mg/dL (60-115); Potassium 4.4 mmol/L (3.3-5.1); Sodium 165 mmol/L (135-145)
[2021-04-04 22:18] LABS: Glucose, Whole Blood 279 mg/dL (60-115)
[2021-04-04 23:48] LABS: Glucose, Whole Blood 253 mg/dL (60-115)
[2021-04-04] MEDS: KCl 20 mEq in 5% Dex/0.45% Sod 20 MEQ/1,000 ML IV.SOLN 200 MEQ IVCONT (23:48)
[2021-04-05] VITALS (20 sets, daily range): BP systolic 100–126; BP diastolic 51–65; PULSE 69–100; RESP 16–28; TEMP 36.2–36.7; O2SAT 91–97; BMI 20.4
[2021-04-05 00:04] LABS: Glucose, Whole Blood 385 mg/dL (60-115)
[2021-04-05 01:03] LABS: Glucose, Whole Blood 188 mg/dL (60-115)
[2021-04-05 01:58] LABS: Glucose, Whole Blood 205 mg/dL (60-115)
[2021-04-05 02:25] LABS: Anion Gap 18 (12-20); Blood Urea Nitrogen 51 mg/dL (9-16); Calcium 8.3 mg/dL (8.4-10.2); Carbon Dioxide 21 mmol/L (22-29); Chloride 128 mmol/L (96-108); Estimated Glomerular Filt Rate 26; Glucose Random 283 mg/dL (60-115); Potassium 4.1 mmol/L (3.3-5.1); Sodium 163 mmol/L (135-145)
[2021-04-05 03:21] LABS: Glucose, Whole Blood 194 mg/dL (60-115)
[2021-04-05] MEDS: KCl 20 mEq in 5% Dex/0.45% Sod 20 MEQ/1,000 ML IV.SOLN 200 MEQ IVCONT (04:27)
[2021-04-05 05:08] LABS: VBG Base Excess 1.4 mmol/L; VBG HCO3 25 mmol/L (22-26); VBG pCO2 37 mmHg; VBG pH 7.43 (7.32-7.43); VBG pO2 40 mmHg
[2021-04-05 05:09] LABS: Glucose, Whole Blood 159 mg/dL (60-115)
[2021-04-05 05:41] LABS: Basophils Percent Auto 0.3 % (0-2); Eosinophils Percent Auto 0.2 % (0-4); Hemoglobin 12.9 g/dl (14.0-18.0); Imm Gran Pct Auto 0.5 % (0.0-0.4); LEFT SHIFT? 1; PLT CLUMP 1; Red Cell Distribution Width 14.7 % (11.0-16.0); SCAN SMEAR FLAG 1
[2021-04-05 05:43] LABS: Basophils Absolute Auto 0.1 X10*3/uL (0.0-0.2); Imm Gran Abs Auto 0.11 X10*3/uL (0.00-0.03); Lymphocytes Absolute Auto 2.4 X10*3/uL (1.2-4.9); Lymphocytes Percent Auto 10.2 % (20-40); Mean Corpuscular HGB Conc 30.7 g/dl (31.0-36.0); Mean Corpuscular Hemoglobin 29.2 pg (27.0-33.0); Mean Platelet Volume 12.1 fL (9.4-12.4); Monocytes Absolute Auto 0.5 X10*3/uL (0.1-1.2); Monocytes Percent Auto 2.1 % (2-11); Neutrophils Absolute Auto 20.2 X10*3/uL (2.0-8.3); Neutrophils Percent Auto 86.7 % (45-73); Platelet Count 127 X10*3/uL (160-400); Red Blood Count 4.42 X10*6/uL (4.60-5.80); White Blood Count 23.2 X10*3/uL (4.8-10.8)
[2021-04-05 05:49] LABS: MANUAL DIFF FLAG SCAN
[2021-04-05 05:51] LABS: Venous Blood Gas Refer to POC result
[2021-04-05 06:12] LABS: SLIDE REVIEW VERIFIED
[2021-04-05 06:14] LABS: Alanine Aminotransferase 17 U/L (0-40); Albumin Level 2.3 g/dL (3.5-5.0); Alkaline Phosphatase 128 U/L (39-117); Anion Gap 17 (12-20); Aspartate Amino Transferase 25 U/L (5-37); Bilirubin Total 0.5 mg/dL (0.0-1.0); Blood Urea Nitrogen 49 mg/dL (9-16); Calcium 8.4 mg/dL (8.4-10.2); Carbon Dioxide 22 mmol/L (22-29); Chloride 129 mmol/L (96-108); Creatinine Clr Calc Pharmacy 25.4; Estimated Glomerular Filt Rate 29; Glucose Random 234 mg/dL (60-115); Magnesium 2.5 mg/dL (1.6-2.6); Phosphorus 2.3 mg/dL (2.7-4.5); Potassium 3.5 mmol/L (3.3-5.1); Sodium 164 mmol/L (135-145); Total Protein 5.1 g/dL (6.5-8.0)
[2021-04-05 06:24] LABS: Glucose, Whole Blood 177 mg/dL (60-115)
[2021-04-05] MEDS: KCl 20 mEq in 5 % Dextrose 20 MEQ/1,000 ML IV.SOLN 150 MEQ IVCONT (06:32)
[2021-04-05] MEDS: Albumin Human 25 % 100 ML IV (06:38)
[2021-04-05 08:26] LABS: Glucose, Whole Blood 186 mg/dL (60-115)
[2021-04-05] MEDS: Levothyroxine Sodium 100 MCG VIAL 25 MCG IVPUSH (09:18)
[2021-04-05] MEDS: Ampicillin Sodium/Sulbactam Na 1.5 GM in 0.9 % Sodium Chloride 100 ML IV ×2 (09:20→20:48)
[2021-04-05 10:49] LABS: Glucose, Whole Blood 193 mg/dL (60-115)
[2021-04-05 10:55] LABS: Anion Gap 18 (12-20); Blood Urea Nitrogen 43 mg/dL (9-16); Calcium 8.4 mg/dL (8.4-10.2); Carbon Dioxide 23 mmol/L (22-29); Chloride 126 mmol/L (96-108); Creatinine Clr Calc Pharmacy 29.7; Estimated Glomerular Filt Rate 35; Glucose Random 246 mg/dL (60-115); Potassium 3.5 mmol/L (3.3-5.1); Sodium 163 mmol/L (135-145)
[2021-04-05 11:54] LABS: Glucose, Whole Blood 203 mg/dL (60-115)
[2021-04-05] MEDS: KCl 20 mEq in 5 % Dextrose 20 MEQ/1,000 ML IV.SOLN 200 MEQ IVCONT (12:44)
--- NOTE | 2021-04-05 13:07 | PHA.PROG ---
Admission Date/Time: April 04, 2021 17:03 Indication: Sepsis Weight in k.2 kg Adjusted body weight in K.34 [place] body weight in K.1 Obesity Dosing Indication % IBW: Serum Creatinine - Last 168 Hours 04/04/21 04/04/21 04/05/21 15:03 20:38 01:54 Creatinine 2.93 H 2.73 H 2.47 H 04/05/21 04/05/21 04:56 10:29 Creatinine 2.23 H 1.91 H Estimated CrCl and GFR - Last 168 Hours 04/04/21 04/04/21 04/05/21 15:03 20:38 01:54 Estim Creat Clear Calc 17.7 19.0 21.0 Estimated GFR 21 23 26 04/05/21 04/05/21 04:56 10:29 Estim Creat Clear Calc 25.4 29.7 Estimated GFR 29 35 Vancomycin Loading Dose: 1000 mg Current Vancomycin Dosing Regimen: 750mg q24h Vancomycin Monitoring using AUC goal of 400 - 600 range with trough as surrogate marker: AUC 488, Trough 16 Date and Time for next Vancomycin Level to be drawn: 04/06/2021 @1500 Pharmacist Comments on Vancomycin Plan: Will be drawing trough after second dose to assess efficacy and safety. Per insight, we may not be therapeutic at that time Vancomycin dosing will take advantage of [employer] as a clinical decision support tool that uses Bayesian modeling to calculate individual patient's pharmacokinetic parameters and forecast the patient's drug concentration time course with the target goal AUC 24 range of 400 - 600 mg/L/hr.
[2021-04-05 14:05] LABS: Glucose, Whole Blood 216 mg/dL (60-115)
--- NOTE | 2021-04-05 14:29 | P.PNCC_ITS ---
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 supposedly superimposed on some degree of chronic dementia and was made a DNR DNI and at nursing facility apparently did not eat for a long time and was then noted to be unarousable new clearly altered mental status and sent to the emergency room where he was clearly comatose fever with elevated white count and left shift I believe that he had a bilateral lower lobe infiltrates implying that he was probably aspirating his of upper respiratory secretions and he was hyper glycemic markedly hypernatremic and markedly hyperosmolar and and otherwise known to have type 2 diabetes so he was treated with the appropriate fluids as well as an insulin drip and my bedside echo showed normal anatomy with a flat inferior vena cava and is actually beginning to awaken to a degree and clearly the hyperosmolarity is resolved although he s till is persistently hypernatremic and his CSF was negative his urinalysis is negative and I do believe aspiration as the source of his issues and 1 set of blood cultures growing Gram-positive cocci for which he is being covered with antibiotics and his acute renal insufficiency also slowly resolving with volume Critical Care Time (minutes): 45 Physical Exam Vital Signs: Vital Signs: Last Vital Signs Temp 97.8 F 04/05/21 12:00 Pulse 78 04/05/21 14:00 Resp 19 04/05/21 14:00 BP 115/61 04/05/21 14:00 Pulse Ox 95 04/05/21 14:00 Oxygen Flow Rate 2 04/04/21 17:03 Body Mass Index 20.4 Currently awakening and he does lock eyes Cardiac exam by bedside echo Class 1 chest without adventitious sounds no respiratory effort Abdomen no organomegaly soft Skin with no areas of cellulitis just a small skin breakdown over the coccyx Objective Data Labs CBC & Chem 7: 04/05/21 04:56 04/05/21 10:29 Labs: Laboratory Results - last 24 hr 04/04/21 04/04/21 04/04/21 14:51 15:03 15:03 WBC 24.1 H RBC 4.91 D Hgb 14.5 D Hct 45.9 D MCV 93.5 MCH 29.5 MCHC 31.6 RDW 14.7 Plt Count 257 MPV 11.8 Immature Gran % (Auto) 0.7 H Neut % (Auto) 92.0 H Lymph % (Auto) 5.1 L [place] % (Auto) 2.0 Eos % (Auto) 0.0 Baso % (Auto) 0.2 Lymph # (Auto) 1.2 [place] # (Auto) 0.5 Eos # (Auto) 0.0 Baso # (Auto) 0.1 Abs Immat Gran (auto) 0.17 H Absolute Neuts (auto) 22.1 H Absolute Nucleated RBC 0.000 Nucleated RBC % (auto) 0.0 Smear Tech's Comments VERIFIED PT 11.3 INR 1.0 VBG pH VBG pCO2 VBG pO2 VBG HCO3 VBG O2 Saturation VBG Base Excess Sodium Potassium Chloride Carbon Dioxide Anion Gap BUN Creatinine Estim Creat Clear Calc Estimated GFR POC Glucose 485 H* Random Glucose Lactic Acid Lactic Acid Fup @ 2Hr Lactic Acid Fup @ 4Hr Calcium Phosphorus Magnesium Total Bilirubin AST ALT Alkaline Phosphatase Total Protein Albumin Urine Color Urine Appearance Urine pH Ur Specific [place] Urine Protein Urine Glucose (UA) Urine Ketones Urine Blood Urine Nitrite Ur Leukocyte Esterase Urine RBC Urine WBC Ur Squamous Epith Cells Amorphous Sediment Urine Bacteria Granular Casts Urine Mucus CSF Tube Number CSF Volume CSF Appearance CSF Color CSF WBC CSF RBC CSF Lymphocytes CSF Appearance (b) CSF Glucose CSF Total Protein Coronavirus (PCR) Influenza Type A (PCR) Influenza Type B (PCR) RSV RNA Qual (PCR) 04/04/21 04/04/21 04/04/21 15:03 15:03 15:03 WBC RBC Hgb Hct MCV MCH MCHC RDW Plt Count MPV Immature Gran % (Auto) Neut % (Auto) Lymph % (Auto) [place] % (Auto) Eos % (Auto) Baso % (Auto) Lymph # (Auto) [place] # (Auto) Eos # (Auto) Baso # (Auto) Abs Immat Gran (auto) Absolute Neuts (auto) Absolute Nucleated RBC Nucleated RBC % (auto) Smear Tech's Comments PT INR VBG pH VBG pCO2 VBG pO2 VBG HCO3 VBG O2 Saturation VBG Base Excess Sodium 164 H* Potassium 4.1 Chloride 121 H Carbon Dioxide 26 Anion Gap 21 H BUN 54 H D Creatinine 2.93 H Estim Creat Clear Calc 17.7 Estimated GFR 21 POC Glucose Random Glucose 612 H* Lactic Acid 3.3 H* Lactic Acid Fup @ 2Hr Lactic Acid Fup @ 4Hr Calcium 9.1 D Phosphorus Magnesium Total Bilirubin 0.5 AST ALT Alkaline Phosphatase Total Protein Albumin Urine Color Urine Appearance Urine pH Ur Specific [place] Urine Protein Urine Glucose (UA) Urine Ketones Urine Blood Urine Nitrite Ur Leukocyte Esterase Urine RBC Urine WBC Ur Squamous Epith Cells Amorphous Sediment Urine Bacteria Granular Casts Urine Mucus CSF Tube Number CSF Volume CSF Appearance CSF Color CSF WBC CSF RBC CSF Lymphocytes CSF Appearance (b) CSF Glucose CSF Total Protein Coronavirus (PCR) NEGATIVE Influenza Type A (PCR) NEGATIVE Influenza Type B (PCR) NEGATIVE RSV RNA Qual (PCR) NEGATIVE 04/04/21 04/04/21 04/04/21 15:03 16:13 16:13 WBC RBC Hgb Hct MCV MCH MCHC RDW Plt Count MPV Immature Gran % (Auto) Neut % (Auto) Lymph % (Auto) [place] % (Auto) Eos % (Auto) Baso % (Auto) Lymph # (Auto) [place] # (Auto) Eos # (Auto) Baso # (Auto) Abs Immat Gran (auto) Absolute Neuts (auto) Absolute Nucleated RBC Nucleated RBC % (auto) Smear Tech's Comments PT INR VBG pH VBG pCO2 VBG pO2 VBG HCO3 VBG O2 Saturation VBG Base Excess Sodium Potassium Chloride Carbon Dioxide Anion Gap BUN Creatinine Estim Creat Clear Calc Estimated GFR POC Glucose Random Glucose Lactic Acid Lactic Acid Fup @ 2Hr Lactic Acid Fup @ 4Hr Calcium Phosphorus Magnesium Total Bilirubin AST ALT Alkaline Phosphatase Total Protein Albumin Urine Color YELLOW Urine Appearance CLEAR Urine pH 5.5 Ur Specific [place] >= 1.030 H Urine Protein 1+ H Urine Glucose (UA) >=1000 H Urine Ketones 15 Urine Blood TRACE Urine Nitrite NEG Ur Leukocyte Esterase NEG Urine RBC 1-4 Urine WBC 0-2 Ur Squamous Epith Cells TRACE Amorphous Sediment 1+ Urine Bacteria NONE Granular Casts 0-2 Urine Mucus 1+ CSF Tube Number 2 4 CSF Volume 1.5 CSF Appearance CLEAR CSF Color COLORLESS CSF WBC 2 CSF RBC 1 CSF Lymphocytes 100 CSF Appearance (b) Clear, Colorless CSF Glucose 288 CSF Total Protein 50.6 H Coronavirus (PCR) Influenza Type A (PCR) Influenza Type B (PCR) RSV RNA Qual (PCR) 04/04/21 04/04/21 04/04/21 17:33 18:39 18:49 WBC RBC Hgb Hct MCV MCH MCHC RDW Plt Count MPV Immature Gran % (Auto) Neut % (Auto) Lymph % (Auto) [place] % (Auto) Eos % (Auto) Baso % (Auto) Lymph # (Auto) [place] # (Auto) Eos # (Auto) Baso # (Auto) Abs Immat Gran (auto) Absolute Neuts (auto) Absolute Nucleated RBC Nucleated RBC % (auto) Smear Tech's Comments PT INR VBG pH VBG pCO2 VBG pO2 VBG HCO3 VBG O2 Saturation VBG Base Excess Sodium Potassium Chloride Carbon Dioxide Anion Gap BUN Creatinine Estim Creat Clear Calc Estimated GFR POC Glucose 347 H 385 H* Random Glucose Lactic Acid Lactic Acid Fup @ 2Hr 2.4 H* Lactic Acid Fup @ 4Hr Calcium Phosphorus Magnesium Total Bilirubin AST ALT Alkaline Phosphatase Total Protein Albumin Urine Color Urine Appearance Urine pH Ur Specific [place] Urine Protein Urine Glucose (UA) Urine Ketones Urine Blood Urine Nitrite Ur Leukocyte Esterase Urine RBC Urine WBC Ur Squamous Epith Cells Amorphous Sediment Urine Bacteria Granular Casts Urine Mucus CSF Tube Number CSF Volume CSF Appearance CSF Color CSF WBC CSF RBC CSF Lymphocytes CSF Appearance (b) CSF Glucose CSF Total Protein Coronavirus (PCR) Influenza Type A (PCR) Influenza Type B (PCR) RSV RNA Qual (PCR) 04/04/21 04/04/21 04/04/21 20:06 20:38 20:55 WBC RBC Hgb Hct MCV MCH MCHC RDW Plt Count MPV Immature Gran % (Auto) Neut % (Auto) Lymph % (Auto) [place] % (Auto) Eos % (Auto) Baso % (Auto) Lymph # (Auto) [place] # (Auto) Eos # (Auto) Baso # (Auto) Abs Immat Gran (auto) Absolute Neuts (auto) Absolute Nucleated RBC Nucleated RBC % (auto) Smear Tech's Comments PT INR VBG pH VBG pCO2 VBG pO2 VBG HCO3 VBG O2 Saturation VBG Base Excess Sodium 165 H* Potassium 4.4 Chloride 127 H Carbon Dioxide 24 Anion Gap 18 BUN 53 H Creatinine 2.73 H Estim Creat Clear Calc 19.0 Estimated GFR 23 POC Glucose 361 H* Random Glucose 439 H* Lactic Acid Lactic Acid Fup @ 2Hr Lactic Acid Fup @ 4Hr 4.1 H* Calcium 8.4 D Phosphorus Magnesium Total Bilirubin AST ALT Alkaline Phosphatase Total Protein Albumin Urine Color Urine Appearance Urine pH Ur Specific [place] Urine Protein Urine Glucose (UA) Urine Ketones Urine Blood Urine Nitrite Ur Leukocyte Esterase Urine RBC Urine WBC Ur Squamous Epith Cells Amorphous Sediment Urine Bacteria Granular Casts Urine Mucus CSF Tube Number CSF Volume CSF Appearance CSF Color CSF WBC CSF RBC CSF Lymphocytes CSF Appearance (b) CSF Glucose CSF Total Protein Coronavirus (PCR) Influenza Type A (PCR) Influenza Type B (PCR) RSV RNA Qual (PCR) 04/04/21 04/04/21 04/04/21 21:03 22:12 23:31 WBC RBC Hgb Hct MCV MCH MCHC RDW Plt Count MPV Immature Gran % (Auto) Neut % (Auto) Lymph % (Auto) [place] % (Auto) Eos % (Auto) Baso % (Auto) Lymph # (Auto) [place] # (Auto) Eos # (Auto) Baso # (Auto) Abs Immat Gran (auto) Absolute Neuts (auto) Absolute Nucleated RBC Nucleated RBC % (auto) Smear Tech's Comments PT INR VBG pH VBG pCO2 VBG pO2 VBG HCO3 VBG O2 Saturation VBG Base Excess Sodium Potassium Chloride Carbon Dioxide Anion Gap BUN Creatinine Estim Creat Clear Calc Estimated GFR POC Glucose 344 H 279 H 253 H Random Glucose Lactic Acid Lactic Acid Fup @ 2Hr Lactic Acid Fup @ 4Hr Calcium Phosphorus Magnesium Total Bilirubin AST ALT Alkaline Phosphatase Total Protein Albumin Urine Color Urine Appearance Urine pH Ur Specific [place] Urine Protein Urine Glucose (UA) Urine Ketones Urine Blood Urine Nitrite Ur Leukocyte Esterase Urine RBC Urine WBC Ur Squamous Epith Cells Amorphous Sediment Urine Bacteria Granular Casts Urine Mucus CSF Tube Number CSF Volume CSF Appearance CSF Color CSF WBC CSF RBC CSF Lymphocytes CSF Appearance (b) CSF Glucose CSF Total Protein Coronavirus (PCR) Influenza Type A (PCR) Influenza Type B (PCR) RSV RNA Qual (PCR) 04/05/21 04/05/21 04/05/21 00:58 01:54 01:55 WBC RBC Hgb Hct MCV MCH MCHC RDW Plt Count MPV Immature Gran % (Auto) Neut % (Auto) Lymph % (Auto) [place] % (Auto) Eos % (Auto) Baso % (Auto) Lymph # (Auto) [place] # (Auto) Eos # (Auto) Baso # (Auto) Abs Immat Gran (auto) Absolute Neuts (auto) Absolute Nucleated RBC Nucleated RBC % (auto) Smear Tech's Comments PT INR VBG pH VBG pCO2 VBG pO2 VBG HCO3 VBG O2 Saturation VBG Base Excess Sodium 163 H* Potassium 4.1 Chloride 128 H Carbon Dioxide 21 L Anion Gap 18 BUN 51 H Creatinine 2.47 H Estim Creat Clear Calc 21.0 Estimated GFR 26 POC Glucose 188 H 205 H Random Glucose 283 H D Lactic Acid Lactic Acid Fup @ 2Hr Lactic Acid Fup @ 4Hr Calcium 8.3 L Phosphorus Magnesium Total Bilirubin AST ALT Alkaline Phosphatase Total Protein Albumin Urine Color Urine Appearance Urine pH Ur Specific [place] Urine Protein Urine Glucose (UA) Urine Ketones Urine Blood Urine Nitrite Ur Leukocyte Esterase Urine RBC Urine WBC Ur Squamous Epith Cells Amorphous Sediment Urine Bacteria Granular Casts Urine Mucus CSF Tube Number CSF Volume CSF Appearance CSF Color CSF WBC CSF RBC CSF Lymphocytes CSF Appearance (b) CSF Glucose CSF Total Protein Coronavirus (PCR) Influenza Type A (PCR) Influenza Type B (PCR) RSV RNA Qual (PCR) 04/05/21 04/05/21 04/05/21 03:17 04:56 04:56 WBC 23.2 H RBC 4.42 L Hgb 12.9 L Hct 42.0 MCV 95.0 MCH 29.2 MCHC 30.7 L RDW 14.7 Plt Count 127 L D MPV 12.1 Immature Gran % (Auto) 0.5 H Neut % (Auto) 86.7 H Lymph % (Auto) 10.2 L [place] % (Auto) 2.1 Eos % (Auto) 0.2 Baso % (Auto) 0.3 Lymph # (Auto) 2.4 [place] # (Auto) 0.5 Eos # (Auto) 0.0 Baso # (Auto) 0.1 Abs Immat Gran (auto) 0.11 H Absolute Neuts (auto) 20.2 H Absolute Nucleated RBC 0.000 Nucleated RBC % (auto) 0.0 Smear Tech's Comments VERIFIED PT INR VBG pH VBG pCO2 VBG pO2 VBG HCO3 VBG O2 Saturation VBG Base Excess Sodium 164 H* Potassium 3.5 Chloride 129 H Carbon Dioxide 22 Anion Gap 17 BUN 49 H Creatinine 2.23 H Estim Creat Clear Calc 25.4 Estimated GFR 29 POC Glucose 194 H Random Glucose 234 H Lactic Acid Lactic Acid Fup @ 2Hr Lactic Acid Fup @ 4Hr Calcium 8.4 Phosphorus 2.3 L Magnesium 2.5 Total Bilirubin 0.5 AST 25 ALT 17 Alkaline Phosphatase 128 H Total Protein 5.1 L Albumin 2.3 L D Urine Color Urine Appearance Urine pH Ur Specific [place] Urine Protein Urine Glucose (UA) Urine Ketones Urine Blood Urine Nitrite Ur Leukocyte Esterase Urine RBC Urine WBC Ur Squamous Epith Cells Amorphous Sediment Urine Bacteria Granular Casts Urine Mucus CSF Tube Number CSF Volume CSF Appearance CSF Color CSF WBC CSF RBC CSF Lymphocytes CSF Appearance (b) CSF Glucose CSF Total Protein Coronavirus (PCR) Influenza Type A (PCR) Influenza Type B (PCR) RSV RNA Qual (PCR) 04/05/21 04/05/21 04/05/21 05:02 05:06 06:20 WBC RBC Hgb Hct MCV MCH MCHC RDW Plt Count MPV Immature Gran % (Auto) Neut % (Auto) Lymph % (Auto) [place] % (Auto) Eos % (Auto) Baso % (Auto) Lymph # (Auto) [place] # (Auto) Eos # (Auto) Baso # (Auto) Abs Immat Gran (auto) Absolute Neuts (auto) Absolute Nucleated RBC Nucleated RBC % (auto) Smear Tech's Comments PT INR VBG pH 7.43 VBG pCO2 37 VBG pO2 40 VBG HCO3 25 VBG O2 Saturation 65.0 VBG Base Excess 1.4 Sodium Potassium Chloride Carbon Dioxide Anion Gap BUN Creatinine Estim Creat Clear Calc Estimated GFR POC Glucose 159 H 177 H Random Glucose Lactic Acid Lactic Acid Fup @ 2Hr Lactic Acid Fup @ 4Hr Calcium Phosphorus Magnesium Total Bilirubin AST ALT Alkaline Phosphatase Total Protein Albumin Urine Color Urine Appearance Urine pH Ur Specific [place] Urine Protein Urine Glucose (UA) Urine Ketones Urine Blood Urine Nitrite Ur Leukocyte Esterase Urine RBC Urine WBC Ur Squamous Epith Cells Amorphous Sediment Urine Bacteria Granular Casts Urine Mucus CSF Tube Number CSF Volume CSF Appearance CSF Color CSF WBC CSF RBC CSF Lymphocytes CSF Appearance (b) CSF Glucose CSF Total Protein Coronavirus (PCR) Influenza Type A (PCR) Influenza Type B (PCR) RSV RNA Qual (PCR) 04/05/21 04/05/21 04/05/21 08:22 10:29 10:42 WBC RBC Hgb Hct MCV MCH MCHC RDW Plt Count MPV Immature Gran % (Auto) Neut % (Auto) Lymph % (Auto) [place] % (Auto) Eos % (Auto) Baso % (Auto) Lymph # (Auto) [place] # (Auto) Eos # (Auto) Baso # (Auto) Abs Immat Gran (auto) Absolute Neuts (auto) Absolute Nucleated RBC Nucleated RBC % (auto) Smear Tech's Comments PT INR VBG pH VBG pCO2 VBG pO2 VBG HCO3 VBG O2 Saturation VBG Base Excess Sodium 163 H* Potassium 3.5 Chloride 126 H Carbon Dioxide 23 Anion Gap 18 BUN 43 H Creatinine 1.91 H Estim Creat Clear Calc 29.7 Estimated GFR 35 POC Glucose 186 H 193 H Random Glucose 246 H Lactic Acid Lactic Acid Fup @ 2Hr Lactic Acid Fup @ 4Hr Calcium 8.4 Phosphorus Magnesium Total Bilirubin AST ALT Alkaline Phosphatase Total Protein Albumin Urine Color Urine Appearance Urine pH Ur Specific [place] Urine Protein Urine Glucose (UA) Urine Ketones Urine Blood Urine Nitrite Ur Leukocyte Esterase Urine RBC Urine WBC Ur Squamous Epith Cells Amorphous Sediment Urine Bacteria Granular Casts Urine Mucus CSF Tube Number CSF Volume CSF Appearance CSF Color CSF WBC CSF RBC CSF Lymphocytes CSF Appearance (b) CSF Glucose CSF Total Protein Coronavirus (PCR) Influenza Type A (PCR) Influenza Type B (PCR) RSV RNA Qual (PCR) 04/05/21 04/05/21 11:49 14:01 WBC RBC Hgb Hct MCV MCH MCHC RDW Plt Count MPV Immature Gran % (Auto) Neut % (Auto) Lymph % (Auto) [place] % (Auto) Eos % (Auto) Baso % (Auto) Lymph # (Auto) [place] # (Auto) Eos # (Auto) Baso # (Auto) Abs Immat Gran (auto) Absolute Neuts (auto) Absolute Nucleated RBC Nucleated RBC % (auto) Smear Tech's Comments PT INR VBG pH VBG pCO2 VBG pO2 VBG HCO3 VBG O2 Saturation VBG Base Excess Sodium Potassium Chloride Carbon Dioxide Anion Gap BUN Creatinine Estim Creat Clear Calc Estimated GFR POC Glucose 203 H 216 H Random Glucose Lactic Acid Lactic Acid Fup @ 2Hr Lactic Acid Fup @ 4Hr Calcium Phosphorus Magnesium Total Bilirubin AST ALT Alkaline Phosphatase Total Protein Albumin Urine Color Urine Appearance Urine pH Ur Specific [place] Urine Protein Urine Glucose (UA) Urine Ketones Urine Blood Urine Nitrite Ur Leukocyte Esterase Urine RBC Urine WBC Ur Squamous Epith Cells Amorphous Sediment Urine Bacteria Granular Casts Urine Mucus CSF Tube Number CSF Volume CSF Appearance CSF Color CSF WBC CSF RBC CSF Lymphocytes CSF Appearance (b) CSF Glucose CSF Total Protein Coronavirus (PCR) Influenza Type A (PCR) Influenza Type B (PCR) RSV RNA Qual (PCR) Microbiology Microbiology Results: Microbiology 04/04/21 15:03 Blood - Venous Blood Culture - Preliminary Prelim: GPC Gram Stain only 04/04/21 16:13 Cerebrospinal Fluid Gram Stain - Final 04/04/21 16:13 Cerebrospinal Fluid CSF Examination - Final 04/04/21 16:13 Cerebrospinal Fluid Fluid Description - Final 04/04/21 16:13 Cerebrospinal Fluid CSF Culture - Preliminary No growth. Quality Stroke Does the patient have a stroke diagnosis?: No VTE Prior VTE?: No VTE Risk Level:: Medical - moderate - high VTE Device Contraindication: N/A - Device Ordered VTE Drug Contraindication: Treatment Not Indicated Progress Note: A&P Assessment and plan (1) Acute metabolic encephalopathy: Status: Acute (2) Hyperosmolar (nonketotic) coma: Status: Acute (3) Acute hypernatremia: Status: Acute (4) Sepsis: Status: Acute (5) Acute hyperglycemia: Status: Acute (6) Renal failure: Status: Acute (7) Acute alteration in mental status: Status: Acute (8) Fever: Status: Acute Assessment and Plan: So I will continue to cover him for the Gram-positive cocci in the blood I believe I have him on Unasyn to cover for aspiration pneumonitis as well and will continue with the D5W and the insulin drip and try to gauge the rate of resolution of his hypernatremia which if it looks reasonable would allow him to be able to be downgraded He will probably need swallow to be tested will and/or decision for PEG feeding tube
[2021-04-05 15:41] LABS: Anion Gap 13 (12-20); Blood Urea Nitrogen 38 mg/dL (9-16); Carbon Dioxide 23 mmol/L (22-29); Chloride 126 mmol/L (96-108); Creatinine Clr Calc Pharmacy 33.9; Estimated Glomerular Filt Rate 41; Glucose Random 275 mg/dL (60-115); Potassium 3.5 mmol/L (3.3-5.1); Sodium 159 mmol/L (135-145)
[2021-04-05] MEDS: vancomycin HCL 750 MG in 0.9 % Sodium Chloride 250 ML 265 MG IV (15:55)
[2021-04-05 16:00] LABS: Glucose, Whole Blood 241 mg/dL (60-115)
[2021-04-05] MEDS: KCl 20 mEq in 0.45% Sod 20 MEQ/1,000 ML IV.SOLN 100 MEQ IVCONT (16:05)
[2021-04-05 16:12] LABS: Sodium Urine Random < 20.0 mmol/L
--- NOTE | 2021-04-05 16:48 | P.EN_ITS ---
Event Note Date of Service: 04/05/21 Event Note: 70-year-old male status post CVA status post acute hypernatremia w ith hyperosmolar coma admitted to ICU. Labs essentially normalized and transferred out to floor. Exam unchanged since ICU documentation. Will follow up with family and a.m. remains DNR DNI
[2021-04-05 16:52] LABS: Osmolality Urine 679 mosm/kg (373-1093)
[2021-04-05 17:53] LABS: Glucose, Whole Blood 223 mg/dL (60-115)
[2021-04-05] MEDS: Insulin Lispro 100 UNIT/ML 3 ML VIAL SUBCUT ×2 (18:21→22:58)
[2021-04-05 22:57] LABS: Glucose, Whole Blood 175 mg/dL (60-115)
[2021-04-05 23:06] LABS: Anion Gap 14 (12-20); Blood Urea Nitrogen 31 mg/dL (9-16); Calcium 7.8 mg/dL (8.4-10.2); Carbon Dioxide 21 mmol/L (22-29); Chloride 126 mmol/L (96-108); Creatinine Clr Calc Pharmacy 41.1; Estimated Glomerular Filt Rate 51; Glucose Random 195 mg/dL (60-115); Potassium 3.5 mmol/L (3.3-5.1); Sodium 157 mmol/L (135-145)
[2021-04-06] VITALS: BP 120/59; PULSE 89; RESP 17; TEMP 37.2; O2SAT 95
[2021-04-06] MEDS: KCl 20 mEq in 0.45% Sod 20 MEQ/1,000 ML IV.SOLN 100 MEQ IVCONT ×2 (02:09→11:42)
[2021-04-06 04:00] VITALS: BP 122/62; PULSE 90; RESP 17; TEMP 36.8; O2SAT 93
[2021-04-06] MEDS: Insulin Lispro 100 UNIT/ML 3 ML VIAL SUBCUT ×2 (05:05→11:42)
[2021-04-06 05:07] LABS: Glucose, Whole Blood 196 mg/dL (60-115)
[2021-04-06 06:00] VITALS: BMI 20.7
[2021-04-06 06:11] LABS: MANUAL DIFF FLAG NO
[2021-04-06 06:15] LABS: Basophils Percent Auto 0.2 % (0-2); Eosinophils Absolute Auto 0.2 X10*3/uL (0.0-0.4); Hematocrit 36.1 % (42-52); Hemoglobin 11.5 g/dl (14.0-18.0); Imm Gran Abs Auto 0.11 X10*3/uL (0.00-0.03); Imm Gran Pct Auto 0.7 % (0.0-0.4); Lymphocytes Absolute Auto 1.4 X10*3/uL (1.2-4.9); Lymphocytes Percent Auto 8.8 % (20-40); Mean Corpuscular HGB Conc 31.9 g/dl (31.0-36.0); Mean Corpuscular Volume 91.2 fL (80-98); Monocytes Absolute Auto 0.2 X10*3/uL (0.1-1.2); Monocytes Percent Auto 1.3 % (2-11); Neutrophils Absolute Auto 13.7 X10*3/uL (2.0-8.3); Platelet Count 125 X10*3/uL (160-400); Red Blood Count 3.96 X10*6/uL (4.60-5.80); Red Cell Distribution Width 14.4 % (11.0-16.0); White Blood Count 15.6 X10*3/uL (4.8-10.8)
[2021-04-06 06:43] LABS: Alanine Aminotransferase 22 U/L (0-40); Albumin Level 2.5 g/dL (3.5-5.0); Alkaline Phosphatase 134 U/L (39-117); Anion Gap 12 (12-20); Aspartate Amino Transferase 34 U/L (5-37); Bilirubin Total 0.9 mg/dL (0.0-1.0); Blood Urea Nitrogen 28 mg/dL (9-16); Calcium 7.9 mg/dL (8.4-10.2); Carbon Dioxide 22 mmol/L (22-29); Chloride 126 mmol/L (96-108); Creatinine Clr Calc Pharmacy 45.6; Estimated Glomerular Filt Rate 56; Glucose Fasting 187 mg/dL (60-99); Potassium 3.4 mmol/L (3.3-5.1); Sodium 157 mmol/L (135-145); Total Protein 4.9 g/dL (6.5-8.0)
[2021-04-06 07:51] VITALS: BP 154/79; PULSE 95; RESP 20; TEMP 36.2; O2SAT 95
[2021-04-06] MEDS: Levothyroxine Sodium 100 MCG VIAL 25 MCG IVPUSH (08:09)
[2021-04-06] MEDS: Ampicillin Sodium/Sulbactam Na 1.5 GM in 0.9 % Sodium Chloride 100 ML IV (08:09)
[2021-04-06 11:09] VITALS: BMI 20.7
--- NOTE | 2021-04-06 11:32 | MHC.CLN ---
NUTRITION QUALIFIES MODERATELY MALNOURISHED. PATIENT IS NPO. STAGE III WOUND TO SACRUM. CONTINUE TO FOLLOW.
[2021-04-06 11:33] VITALS: BP 136/66; PULSE 97; RESP 20; TEMP 37.2; O2SAT 94
[2021-04-06 11:42] LABS: Glucose, Whole Blood 184 mg/dL (60-115)
[2021-04-06 15:15] VITALS: BP 156/92; PULSE 109; RESP 17; TEMP 37.2; O2SAT 92
[2021-04-06 15:43] LABS: Vancomycin Trough 7.9 mcg/mL (10.0-20.0)
--- NOTE | 2021-04-06 16:16 | P.DS_ITS ---
DS: Providers Provider Date of Service: 04/06/21 Date of admission: 04/04/21 17:03 Primary care physician: Liya Eugene MD DS: Diagnosis Discharge Diagnosis (1) Acute metabolic encephalopathy: Status: Acute (2) Hyperosmolar (nonketotic) coma: Status: Acute (3) Acute hypernatremia: Status: Acute (4) Sepsis: Status: Acute (5) Acute hyperglycemia: Status: Acute (6) Renal failure: Status: Acute (7) Acute alteration in mental status: Status: Acute (8) Fever: Status: Acute DS: Summary Hospital Course Hospital Course: 73-year-old male 2 weeks status post a CVA in 2 foci include including occipital and medial temporal and appears to be cachectic in marked metabolic disarray who is [place] [address] with left shift negative urinalysis; chest x-ray that shows bibasilar infiltrates which could be consistent with aspiration. Hypoglycemic and hypernatremic on arrival to ER. Admitted to ICU Hospital course Treated with IV fluids antibiotics in the ICU; patient came in as a DNR DNI and slowly improved. Was transferred to the floor where he was not taking p.o/nonverbal. Discussion undertaken with son who states he and family wish their father to be [employer] and return to [facility]. At this time he is medically acceptable to transfer to SNF DNR DNI [employer] Time Spent with Patient Time attestation: Total time spent providing and/or coordinating discharge services: Discharge coordination time: Greater than 30 minutes Quality: Stroke Does the patient have a stroke diagnosis?: No Physical Exam Vital Signs: Vital Signs: Last Vital Signs Temp 99 F 04/06/21 15:15 Pulse 109 H 04/06/21 15:15 Resp 17 04/06/21 15:15 BP 156/92 H 04/06/21 15:15 Pulse Ox 92 04/06/21 15:15 Oxygen Flow Rate 2 04/04/21 17:03 Body Mass Index 20.7 Const: Other: Some in the but arousable nonverbal HENMT: Other: Membranes dry Resp: Other: Coarse rhonchi throughout that do not clear with week cough Cardio: Other: No S4; S1-S2; no S3 murmurs rubs gallops GI: Other: Soft nontender nondistended normoactive bowel sounds Extrem: Other: No edema DS: Data Data Completed and Pending Labs on day of discharge: Laboratory Results - last 24 hr 04/05/21 04/05/21 04/05/21 15:41 17:38 22:18 WBC RBC Hgb Hct MCV MCH MCHC RDW Plt Count MPV Immature Gran % (Auto) Neut % (Auto) Lymph % (Auto) [place] % (Auto) Eos % (Auto) Baso % (Auto) Lymph # (Auto) [place] # (Auto) Eos # (Auto) Baso # (Auto) Abs Immat Gran (auto) Absolute Neuts (auto) Absolute Nucleated RBC Nucleated RBC % (auto) Sodium 157 H Potassium 3.5 Chloride 126 H Carbon Dioxide 21 L Anion Gap 14 BUN 31 H Creatinine 1.38 Estim Creat Clear Calc 41.1 Estimated GFR 51 POC Glucose 223 H Random Glucose 195 H Fasting Glucose Calcium 7.8 L Total Bilirubin AST ALT Alkaline Phosphatase Total Protein Albumin Urine Osmolality 679 Vancomycin Trough 04/05/21 04/06/21 04/06/21 22:53 05:02 06:01 WBC 15.6 H RBC 3.96 L Hgb 11.5 L Hct 36.1 L MCV 91.2 MCH 29.0 MCHC 31.9 RDW 14.4 Plt Count 125 L MPV 12.0 Immature Gran % (Auto) 0.7 H Neut % (Auto) 88.0 H Lymph % (Auto) 8.8 L [place] % (Auto) 1.3 L Eos % (Auto) 1.0 Baso % (Auto) 0.2 Lymph # (Auto) 1.4 [place] # (Auto) 0.2 Eos # (Auto) 0.2 Baso # (Auto) 0.0 Abs Immat Gran (auto) 0.11 H Absolute Neuts (auto) 13.7 H Absolute Nucleated RBC 0.000 Nucleated RBC % (auto) 0.0 Sodium Potassium Chloride Carbon Dioxide Anion Gap BUN Creatinine Estim Creat Clear Calc Estimated GFR POC Glucose 175 H 196 H Random Glucose Fasting Glucose Calcium Total Bilirubin AST ALT Alkaline Phosphatase Total Protein Albumin Urine Osmolality Vancomycin Trough 04/06/21 04/06/21 04/06/21 06:01 11:36 15:01 WBC RBC Hgb Hct MCV MCH MCHC RDW Plt Count MPV Immature Gran % (Auto) Neut % (Auto) Lymph % (Auto) [place] % (Auto) Eos % (Auto) Baso % (Auto) Lymph # (Auto) [place] # (Auto) Eos # (Auto) Baso # (Auto) Abs Immat Gran (auto) Absolute Neuts (auto) Absolute Nucleated RBC Nucleated RBC % (auto) Sodium 157 H Potassium 3.4 Chloride 126 H Carbon Dioxide 22 Anion Gap 12 BUN 28 H Creatinine 1.26 Estim Creat Clear Calc 45.6 Estimated GFR 56 POC Glucose 184 H Random Glucose Fasting Glucose 187 H Calcium 7.9 L Total Bilirubin 0.9 AST 34 ALT 22 Alkaline Phosphatase 134 H Total Protein 4.9 L Albumin 2.5 L Urine Osmolality Vancomycin Trough 7.9 L Preliminary micro results at discharge 04/04/21 15:03 Blood Culture - Preliminary Blood - Venous Gram positive cocci 04/04/21 16:13 CSF Culture - Preliminary Cerebrospinal Fluid No growth after 1 day 04/04/21 15:16 Blood Culture - Preliminary Blood - Venous No growth after 24 hours. Discharge Plan Discharge Patient Disposition: Hospice - Medical Facility Discharge Diagnosis: Hyperosmolar coma [facility]: [facility] [Outside] - 1 Day (COMFORT MEASURES ONLY) Liya Eugene MD [Primary Care Provider] - 1 Week Discharge Medications: Discontinued atorvastatin 80 mg Tablet 80 mg PO DAILY RF: 0 acetaminophen 650 mg Tablet 650 mg PO Q4H PRN (Reason: Fever Or Pain) RF: 0 bisacodyl 10 mg Suppository 10 mg OR DAILY PRN (Reason: Constipation) RF: 0 magnesium citrate [Citrate of Magnesia] Solution 150 ml PO BID PRN (Reason: Constipation) RF: 0 allopurinol 300 mg Tablet 300 mg PO DAILY RF: 0 aspirin 81 mg Tablet 81 mg PO DAILY RF: 0 docusate sodium 100 mg Tablet 100 mg PO BID PRN (Reason: Constipation) RF: 0 enalapril maleate 10 mg Tablet 30 mg PO DAILY RF: 0 levothyroxine 50 mcg Tablet 50 mcg PO DAILY RF: 0 aluminum-magnesium hydroxide 225-200 mg/5 mL Suspension 30 ml PO Q6-8H PRN (Reason: Dyspepsia) RF: 0 Discharge Orders: Discharge Order (Routine); Ordered 04/06/21 Ordered By: Cesar Watts Diet: other Activity on Discharge: As tolerated Stand Alone Forms: Patient Portal Discharge page Care Plan Goals: Comfort care Health Concerns: Comfort care Plan of Treatment: Comfort care Assessment: Comfort care
--- NOTE | 2021-04-06 16:29 | MHC.CM.PN ---
PT DISCHARGING TO [facility], PT'S SON AWARE OF PLAN, ACTION FOR BLS TRANSPORT
--- NOTE | 2021-04-06 17:45 | PC.NURSE ---
Pt to be discharged to [facility] as Comfort Measures Only. Dr. Watts ordered this nurse to keep wells in place for discharge to [facility].
== END 2021-04-06 19:00 | disposition home or self-care (01) | DRG 871 ==
LOC: HO.ED 16:32 → HO.EDOVER 18:01 → HO.ICU 18:17 → HO.S3 04-05 16:12
PROVIDERS: Registered Nurse Community Health; Admitting Provider Internal Medicine Cardiovascular Disease; Emergency Provider Emergency Medicine Emergency Medical Services; PCP Internal Medicine; Visit Provider Hospitalist
DX: A41.9 Sepsis, unspecified organism (principal); E11.01 Type 2 diabetes mellitus with hyperosmolarity with coma; G93.41 Metabolic encephalopathy; J69.0 Pneumonitis due to inhalation of food and vomit; E87.0 Hyperosmolality and hypernatremia; R64 Cachexia; N17.9 Acute kidney failure, unspecified; L89.159 Pressure ulcer of sacral region, unspecified stage; M10.9 Gout, unspecified; N18.30 Chronic kidney disease, stage 3 unspecified; E11.22 Type 2 diabetes mellitus with diabetic chronic kidney disease; Z68.20 Body mass index [BMI] 20.0-20.9, adult; E78.5 Hyperlipidemia, unspecified; Z20.822 Contact with and (suspected) exposure to COVID-19; Z86.73 Personal history of transient ischemic attack (TIA), and cerebral infarction without residual deficits; Z66 Do not resuscitate; Z51.5 Encounter for palliative care
CPT/HCPCS: 0241U; 36415; 71045; 80048; 80053; 80202; 81001; 82247; 82436; 82803; 82945; 82947; 83605; 83735; 83935; 84100; 84157; 84300; 85025; 85610; 87015; 87040; 87070; 87147; 87205; 89051; 93005; 96361; 96365; 96375; 99285; 99291; J0295; J0692; J3370; P9047